=== PATIENT | female | born 1970 | race Caucasian/White ===

== ENCOUNTER 2020-07-12 17:30 | Emergency (ER) | payer BC, OTHER ==
--- OUTSIDE RECORDS SUMMARY | 2020-07-12 17:33 | XMS REPORT | Continuity of Care Document ---
:1970 Author Organization [facility] t Address [address] [place] [address] Care Team Providers Name Role Phone [facility] Attending Clinician Unavailable Barry Santoyo Attending Clinician MARISABEL Admitting Clinician Unavailable Problems Condition Condition Condition Status Onset Resolution Last Treating Co mments Source Name Details Category Date Date Treatment Clinician Date Family Problem Active 2018-03-08 Memor ia history of 04:11:49 l colon Family [place] cancer history of colon cancer Active Problem 03/08/2018 [facility]: [facility] Stomatitis Problem Active 2018-03-08 M emoria 04:11:49 l [place] Stomatitis Active Problem 03/08/2018 eCW: [facility] Back spasm Problem Active 2018-03-08 M emoria 04:11:49 l Back [place] spasm Active Problem 03/08/2018 eCW: [facility] Generalize Problem Active 2018-03-08 M emoria d anxiety 04:11:49 l disorder [place] Generalize d anxiety disorder Active Problem 03/08/2018 eCW: [facility] Migraine Problem Active 2018-03-08 Mem oria without 04:11:49 l aura and Migraine Herm nehemiah without without status aura and migrainosu without s, not status intractabl migrainosu e s, not intractabl e Active Problem 03/08/2018 eCW: [facility] Amnesia Problem Active 2020-06-18 Noé lynne (finding) 01:44:48 l Amnesia [place] (finding) Active Problem 06/18/2020 [facility] Bipolar Problem Active 2020-06-18 Noé lynne disorder 01:44:48 l (disorder) Bipolar Her oconnor disorder (disorder) Active Problem 06/18/2020 [facility] Chronic Problem Active 2020-06-18 Noé lynne constipati 01:44:48 l on Chronic [place] (disorder) constipati on (disorder) Active Problem 06/18/2020 [facility] Lumbar Problem Active 2020-06-18 Memor ia radiculopa 01:44:48 l thy Lumbar [place] (disorder) radiculopa thy (disorder) Active Problem 06/18/2020 [facility] Allergies, Adverse Reactions, Alerts Allergy Allergy Status Severity Reaction(s) Onset Inactive Treating Comm ents Source Name Type Date Date Clinician sulfa sulfa Active Memoria drugs drugs l [facility] Social History Social Habit Start Date Stop Date Quantity Comments Source Social History 2016-12-21 2016-12-21 [facility] H ermann 22:12:53 22:12:53 Alcohol: 2015-05-24 2015-05-24 [facility] Lizzie nn 00:00:00 00:00:00 Medications Ordered Filled Start Stop Current Ordering Indication Dosage Frequency Signature Comments Components Source Medication Medication Date Date Medication? Clinician (SIG) Name Name Xanax Yes .50, PO, Memoria 2-10 Bedtime, 0 l 15:24: Refill(s) [facility] 00 Baclofen Yes PO, TID, 0 Mem oria 2-10 Refill(s) l 15:24: [place] 00 Acetaminoph Yes 1 tab, PO, Memoria en 325 MG / 2-10 Q6H, 0 l Hydrocodone 15:24: Refill(s) H ermann Bitartrate 00 10 MG Oral Tablet [Blevins 10/325] Topamax Yes Mumtaz Mesa 1 tab(s) Memoria 8-09 l 04:19: [facility] 23 Topamax 0 Yes Mumtaz [place] 1 tab(s) Memoria 8-09 l 00:00: [place] 00 Vital Signs Vital Name Observation Time Observation Value Comments Source Systolic (mm Hg) 2020-06-15 15:18:00 Noé rial [place] Diastolic (mm Hg) 2020-06-15 15:18:00 Mem orial [facility] Heart Rate 2020-06-15 15:18:00 [facility] Respitory Rate 2020-06-15 15:18:00 Saadori al [place] Height 2020-06-15 15:18:00 154.94 cm [facility] Weight 2020-06-15 15:18:00 Pari Phipps BMI Calculated 2020-06-15 15:18:00 [facility] Procedures Procedure Date / Time Performed Performing Clinician Diomedes acosta Left wrist Pari Phipps Right foot Pari Phipps Encounters Start End Encounter Admission Attending Care Care Encounter Source Date/Time Date/Time Type Type Clinicians Facility Department ID 2020-06-06 Inpatient SOHAIL LAM PT [facility] [id number] [place] 08:26:00 [facility] 2020-06-15 2020-06-15 Outpatient LIZBET Santoyo [facility] [id number] 09:00:00 23:59:59 Albino Martin Barry 2018-03-07 2018-03-07 Outpatient [facility] [place] [id number] [facility] 14:40:00 14:40:00 [facility] 2017-07-02 2017-07-02 Outpatient [facility] [place] [id number] Memoria 14:00:00 14:00:00 [facility] 2015-12-13 2015-12-13 Outpatient [facility] [place] [id number] Memoria 09:05:00 09:05:00 [facility] 2015-12-12 2015-12-12 Outpatient [facility] [place] [id number] Memoria 11:53:00 11:53:00 [facility] 2015-12-12 2015-12-12 Outpatient [facility] [place] [id number] Memoria 08:49:00 08:49:00 [facility] Results This patient has no known results.
[2020-07-12 19:41] LABS: Absolute Lymphocytes (CBC) 2.8 K/uL (0.7-4.9); Basophils % 1.3 % (0-1.3); Hematocrit 38.8 % (36.0-45.0); Lymphocytes % 42.3 % (15.3-44.8); MPV 9.7 fL (7.6-11.3); RBC Red Blood Cell Count 4.42 M/uL (3.86-4.86)
[2020-07-12 19:51] LABS: Protime INR 0.99
[2020-07-12 19:54] LABS: Barbiturates NEGATIVE (NEGATIVE); Benzodiazepines POSITIVE (NEGATIVE); Cocaine NEGATIVE (NEGATIVE); METHAMPHETAM NEGATIVE (NEGATIVE); Methadone NEGATIVE (NEGATIVE); Opiates NEGATIVE (NEGATIVE); Phencyclidine NEGATIVE (NEGATIVE); THC Cannibis NEGATIVE (NEGATIVE)
[2020-07-12 20:04] LABS: Urine Blood NEGATIVE (NEG); Urine Glucose NEGATIVE (NEG); Urine Protein TRACE (NEG); Urine Specific Gravity >1.030 (1.005-1.030)
[2020-07-12 20:18] LABS: BUN Blood Urea Nitrogen 12 mg/dL (7-18); Bicarbonate 26 mmol/L (21-32); Glucose Level 104 mg/dL (74-106); Potassium 4.9 mmol/L (3.5-5.1); Sodium Level 143 mmol/L (136-145)
[2020-07-12 20:19] LABS: ALT/SGPT 28 U/L (12-78); AST/SGOT 19 U/L (15-37); Albumin 3.3 g/dL (3.4-5.0); Alkaline Phosphatase 91 U/L (45-117); Bilirubin Direct < 0.1 mg/dL (0-0.2); Bilirubin Total 0.1 mg/dL (0.2-1.0); Protein, Total 6.7 g/dL (6.4-8.2)
--- NOTE | 2020-07-12 21:30 | EDPHYS ---
Physician Documentation [facility] Name: Shannan Montes Age: 49 yrs Sex: Female : 1970 Arrival Date: 07/12/2020 Time: 17:35 Bed 8 Private MD: Nely Nye ED Physician Sergio Sauceda HPI: 07/12 19:23 This 49 yrs old Female presents to ER via Ambulatory with complaints of pm1 Depression. 19:23 The patient presents to the emergency department with suicide ideation, and the patient pm1 has a plan, to overdose with medications. 19:23 Onset: The symptoms/episode began/occurred 1 week(s) ago. Past psychiatric history: pm1 Prior diagnosis: bipolar disorder, PTSD. 19:23 Associated signs and symptoms: The patient has no apparent associated signs or pm1 symptoms, Pertinent negatives: homicidal ideation, substance abuse. Severity of symptoms: in the emergency department the symptoms are worse. The patient has experienced similar episodes in the past, multiple times, Patient has had multiple admissions to the hospital for suicidal ideation and overdose attempts in the past. 19:23 Last inpatient hospitalization was 2006 for suicide attempt by overdose. Patient has pm1 not slept in 4 days and she usually has insomnia prior to suicidal ideation and attempt. Patient recently had her medications changed from Prozac and Topamax to Latuda and Pristiq one week ago. 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: 23:07 lmp unknwom mg2 Historical: - Allergies: 17:44 Sulfa (Sulfonamide Antibiotics); ll1 - Home Meds: 07/13 00:00 alprazolam 0.5 mg Oral tab 1 tab twice a day [Active]; desvenlafaxine 50 mg oral Tb24 1 rr5 tab once daily [Active]; progesterone micronized 200 mg oral cap 1 cap once a day evening [Active]; ibuprofen 800 mg Oral tab 1 tab once a day [Active]; bie 70/30 OD am [Active]; Latuda 40 mg oral tab 1 tab once daily [Active]; - PMHx: 07/12 17:44 Bipolar disorder; PTSD; bulging discs-back pain with pinched nerves.; ll1 - PSHx: 17:44 wrist/foot sx; Tubal ligation; ; ll1 - Immunization history:: Flu vaccine is not up to date. - Social history:: Smoking status: Patient denies any tobacco usage or history of. ROS: 19:23 Constitutional: Negative for fever, chills, and weight loss, Cardiovascular: Negative pm1 for chest pain, palpitations, and edema, Respiratory: Negative for shortness of breath, cough, wheezing, and pleuritic chest pain, Abdomen/GI: Negative for abdominal pain, nausea, vomiting, diarrhea, and constipation, Back: Negative for injury and pain, Neuro: Negative for headache, weakness, numbness, tingling, and seizure. 19:23 Psych: Positive for anxiety, insomnia, suicidal ideation, Negative for drug dependence, alcohol dependence, auditory hallucinations, visual hallucinations, homicidal ideation. Exam: 19:23 Constitutional: This is a well developed, well nourished patient who is awake, alert, pm1 and in no acute distress. Head/Face: Normocephalic, atraumatic. 19:23 Skin: Warm, dry with normal turgor. Normal color with no rashes, no lesions, and no evidence of cellulitis. MS/ Extremity: Pulses equal, no cyanosis. Neurovascular intact. Full, normal range of motion. 19:23 Cardiovascular: Exam negative for acute changes, Rate: normal, Rhythm: regular, Pulses: no pulse deficits are appreciated. 19:23 Respiratory: Exam negative for acute changes, respiratory distress, shortness of breath. 19:23 Neuro: Exam negative for acute changes, Orientation: is normal, Mentation: is normal, Motor: is normal, moves all fours, Gait: is steady, at a normal pace, without difficulty. 19:23 Psych: Behavior/mood is pleasant, cooperative, Affect is calm, Oriented to person, place, time, Patient having thoughts of suicide. Plan for suicide is overdose on medications Delusions/hallucinations are not present. Vital Signs: 17:40 BP 117 / 77; Pulse 66; Resp 16; Temp 98.0; Pulse Ox 99% ; Weight 60.78 kg; Height 5 ft. ll1 1 in. (154.94 cm); Pain 0/10; 19:52 BP 125 / 70; Pulse 69; Resp 16; Pulse Ox 98% ; rr5 03 02:00 BP 125 / 71; Pulse 70; Resp 18; Temp 98; Pulse Ox 100% on R/A; mg2 07/12 17:40 Body Mass Index 25.32 (60.78 kg, 154.94 cm) ll1 MDM: 07/12 18:48 Patient medically screened. pm1 21:28 Data reviewed: vital signs. Data interpreted: Pulse oximetry: on room air is 98 %. pm1 Interpretation: normal. 21:28 Counseling: I had a detailed discussion with the patient and/or guardian regarding: the pm1 historical points, exam findings, and any diagnostic results supporting the discharge/admit diagnosis, lab results, the need to transfer to another facility, [facility] does not immediately have the required specialist. 23:28 ED course: I discussed the patient with Dr. Vanegas whom accepted transfer. [facility] 07/12 18:58 Order name: Acetaminophen 1 07/12 18:58 Order name: Basic Metabolic Panel 1 07/12 18:58 Order name: CBC with Diff 1 07/12 18:58 Order name: ETOH Level 1 07/12 18:58 Order name: Hepatic Function; Complete Time: 20:51 pm1 07/12 18:58 Order name: PT-INR; Complete Time: 20:05 pm1 07/12 18:58 Order name: Ptt, Activated; Complete Time: 20:05 pm1 07/12 18:58 Order name: Salicylate; Complete Time: 20:05 pm1 07/12 18:58 Order name: Urine Drug Screen; Complete Time: 20:05 pm1 07/12 18:58 Order name: Acetaminophen Level; Complete Time: 20:51 EDMS 07/12 18:58 Order name: Basic Metabolic Panel; Complete Time: 20:51 EDMS 07/12 18:59 Order name: CBC with Automated Diff; Complete Time: 20:05 EDMS 07/12 18:59 Order name: Alcohol Serum/Plasma; Complete Time: 20:05 EDMS 07/12 19:34 Order name: Urine Dipstick--Ancillary (enter results) [facility] 07/12 18:58 Order name: EKG; Complete Time: 18:59 pm1 07/12 18:58 Order name: EKG - Nurse/Tech; Complete Time: 19:36 pm1 07/12 18:58 Order name: IV Saline Lock; Complete Time: 19:37 pm1 07/12 18:58 Order name: Labs collected and sent; Complete Time: 19:37 pm1 07/12 18:58 Order name: Urine Dipstick-Ancillary (obtain specimen); Complete Time: 19:37 pm1 07/12 19:40 Order name: COVID-19 : Document "Date of Symptom Onset" if Symptomatic. mw2 07/12 19:53 Order name: CORONAVIRUS EDNM 07/12 20:04 Order name: Urine Dipstick-Ancillary; Complete Time: 20:05 EDMS 07/12 20:43 Order name: SARS-COV-2 RT PCR; Complete Time: 20:51 EDMS Administered Medications: No medications were administered Disposition: 07/13 07:01 Co-signature as Attending Physician, Sergio Sauceda MD. rn Disposition: 07/12/20 21:29 Transfer ordered to Psych Facility. Diagnosis is Suicidal ideations. - Reason for transfer: Higher level of care. - Accepting physician is . - Condition is Stable. - Problem is new. - Symptoms are unchanged. Signatures: Dispatcher [employer] [facility] Casey Thao PA PA Sergio Hinojosa MD MD rn Mario Jacobo, [facility] MECHANICAL ASSEMBLY TECHNICIAN pm1 Agusto Steele, RN RN mg2 Cecilio Hector RN RN rr5 Bri Ybarra RN RN ll1 Corrections: (The following items were deleted from the chart) 07/12 19:27 18:59 Urine Test ordered. pm1 mw2 07/13 02:42 07/12 21:29 07/12/2020 21:29 Transfer ordered to Psych Facility. Diagnosis is Suicidal mg2 ideations. Reason for transfer: Higher level of care. Accepting physician is . Condition is Stable. Problem is new. Symptoms are unchanged. pm1
--- NOTE | 2020-07-12 21:30 | ER ---
Nurse's Notes [facility] Name: Shannan Montes Age: 49 yrs Sex: Female : 1970 Arrival Date: 07/12/2020 Time: 17:35 Bed 8 Private MD: Nely Nye Diagnosis: Suicidal ideations Presentation: 07/12 17:40 Chief complaint: Patient states: SI for 1 week worse than usual. Recent change off ll1 prozac and topamax, on latuda and prestiq now. States she was going to take a lot of pills to kill herself. Her psychiatrist Dr. Yue Spencer sent her in for eval. Coronavirus screen: Client denies travel out of the [place] in the last 14 days. At this time, the client does not indicate any symptoms associated with coronavirus-19. Ebola Screen: Patient denies travel to an Ebola-affected area in the 21 days before illness onset. Initial Sepsis Screen: Does the patient meet any 2 criteria? No. Patient's initial sepsis screen is negative. Does the patient have a suspected source of infection? No. Patient's initial sepsis screen is negative. Risk Assessment: Do you want to hurt yourself or someone else? Patient reports no desire to harm self or others. Onset of symptoms was July 05, 2020. 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: 23:07 lmp unknwom mg2 Historical: - Allergies: 17:44 Sulfa (Sulfonamide Antibiotics); ll1 - Home Meds: 07/13 00:00 alprazolam 0.5 mg Oral tab 1 tab twice a day [Active]; desvenlafaxine 50 mg oral Tb24 1 rr5 tab once daily [Active]; progesterone micronized 200 mg oral cap 1 cap once a day evening [Active]; ibuprofen 800 mg Oral tab 1 tab once a day [Active]; bie 70/30 OD am [Active]; Latuda 40 mg oral tab 1 tab once daily [Active]; - PMHx: 07/12 17:44 Bipolar disorder; PTSD; bulging discs-back pain with pinched nerves.; ll1 - PSHx: 17:44 wrist/foot sx; Tubal ligation; ; ll1 - Immunization history:: Flu vaccine is not up to date. - Social history:: Smoking status: Patient denies any tobacco usage or history of. Screenin:38 Abuse screen: Denies threats or abuse. Denies injuries from another. Nutritional rr5 screening: No deficits noted. Tuberculosis screening: No symptoms or risk factors identified. Fall Risk IV access (20 points). Total Olvera Fall Scale indicates No Risk (0-24 pts). Assessment: 19:20 General: Appears in no apparent distress. comfortable, Behavior is calm, cooperative, rr5 Reports suicidal thoughts. 19:20 Pain: Denies pain. Neuro: Level of Consciousness is awake, alert, obeys commands, rr5 Oriented to person, place, time. Cardiovascular: Capillary refill < 3 seconds Patient's skin is warm and dry. Respiratory: Airway is patent Respiratory effort is even, unlabored, Respiratory pattern is regular, symmetrical. GI: No signs and/or symptoms were reported involving the gastrointestinal system. : No signs and/or symptoms were reported regarding the genitourinary system. EENT: No signs and/or symptoms were reported regarding the EENT system. Derm: Skin is intact, is healthy with good turgor, Skin temperature is warm. Musculoskeletal: Capillary refill < 3 seconds. 23:10 Reassessment: report given to sahil from [facility] [id number]. rr5 23:12 Reassessment: Patient appears in no apparent distress at this time. Patient and/or mg2 family updated on plan of care and expected duration. Pain level reassessed. report given to CHARLOTTE Diaz of [facility]. 07/13 00:45 Reassessment: patient lying on bed, explained about the waiting time for transfer. mg2 Psych: 01:00 [place] Suicide Severity Screening: "In the past month, have you actually had any mg2 thoughts of killing yourself?" Patient responds "yes." "In your lifetime, have you ever done anything, started to do anything, or prepared to do anything to end your life?" Patient responds "no.". [place] Suicide Severity Screening: In the past month, have you wished you were or wished you could go to sleep and not wake up? Patient responds "yes.". Subjective: Patient's mood is sad, Delusions are denied, Hallucinations are denied Having thoughts of suicide. Objective: Patient is cooperative, Speech is normal, Affect is appropriate. Interventions: Removed personal items and placed in bag. Patient placed in hospital gown. Searched person for dangerous items. Urine collected and sent for urine drug test. Belonging list filled out. Suicide Risk Assessment: Sad Person Scale: Sex of patient: Female: Score 0 points. Age of patient: Score 0 point if patient falls outside of specified age parameters. Depression: Score 1 point if signs of depression are present. Previous Attempt: Substance Abuse: Score 1 point if patient abuses alcohol or drugs. Rational Thinking: Score 0 point if patient has rational thinking. Social Support: Score 0 if social support is present/available. Organized Plan: Score 1 point if patient had a plan in place. Safety Checks: Personal items have been removed. Door is open. No visitors are present at this time. Pt denies substance abuse. 02:00 Commitment: Patient will be a voluntary commitment. mg2 Vital Signs: 07/12 17:40 BP 117 / 77; Pulse 66; Resp 16; Temp 98.0; Pulse Ox 99% ; Weight 60.78 kg; Height 5 ft. ll1 1 in. (154.94 cm); Pain 0/10; 19:52 BP 125 / 70; Pulse 69; Resp 16; Pulse Ox 98% ; rr5 07/13 02:00 BP 125 / 71; Pulse 70; Resp 18; Temp 98; Pulse Ox 100% on R/A; mg2 07/12 17:40 Body Mass Index 25.32 (60.78 kg, 154.94 cm) ll1 ED Course: 07/12 17:35 Patient arrived in ED. mr 17:35 Nely Nye MD is Private Physician. mr 17:43 Triage completed. ll1 17:44 Arm band placed on Patient placed in an exam room, on a stretcher. ll1 18:48 Mario Jacobo NP is [facility] pm1 18:48 Sergio Sauceda MD is Attending Physician. pm1 19:00 Safety checks: Items removed: Door open/sign placed on door: yes. Family/friend jp3 present: no. Sitter present: Yes. 19:25 Inserted saline lock: 20 gauge in left forearm, using aseptic technique. Blood rr5 collected. 19:30 Urine collected: clean catch specimen, clear. rr5 19:36 Cecilio Hector RN is Primary Nurse. rr5 19:37 No provider procedures requiring assistance completed. EKG done, by ED staff, reviewed rr5 by Mario Jacobo NP. 19:38 Patient has correct armband on for positive identification. Placed in gown. Bed in low rr5 position. 19:52 Valuables inventory done. Locked in safe. See valuables checklist. rr5 19:53 COVID swab sent to lab. [facility] 22:05 faxed patient information to all [facility] facilities. 2 22:10 PHCP role handed off by Mario Jacobo, [facility] 22:10 Casey Thao PA is PHCP. [facility] 23:04 [facility] called to do a nurse to nurse. 2 23:05 [facility] called to do a nurse to nurse. mw2 23:07 intact, bleeding controlled, No redness/swelling at site. Pressure dressing applied, Pt jp3 removed IV from arm. 23:07 IV discontinued. [facility] 23:[address]. Concepcion the psychiatrist from [facility]. 2 23:28 updated the patient on transfer status. [facility] 07/13 00:27 updated the patient on transfer status. Informed her that we are waiting for [address] to call back and give us acceptance. 02:01 administrative approval was given by Santiago Graves/ patient has been accepted to [address]/ Dr. Fox has accepted the patient in tranfer. Administered Medications: No medications were administered Outcome: 07/12 21:29 ER care complete, transfer ordered by MD. pm1 07/13 02:41 Transferred by ground EMS to other acute care facility: [facility]. mg2 Condition: stable Instructed on the need for transfer, Demonstrated understanding of instructions. 02:42 Patient left the ED. mg2 Signatures: Casey Thao PA PA [facility] Michelle Contreras mr Mario Jacobo, [facility] DENTAL DETAIL REPRESENTATIVE pm1 Yovany Smith 2 Agusto Steele, CHARLOTTE RN mg2 Augie Chicas jp3 Cecilio Hector, RN RN rr5 Bri Ybarra RN RN ll1 Corrections: (The following items were deleted from the chart) 00:29 07/12 23:[address] Concepcion the psychiatrist from [facility] mw2 mw2
[2020-07-13 17:29] VITALS: BP 125/71; TEMP 98; O2SAT 100
--- NOTE | 2020-07-14 05:16 | EKG ---
Test Date: 2020-07-12 Test Time: 19:22:13 Glass Cutting Machine Feeder: RR MEASUREMENT RESULTS: Intervals: Rate: 63 NJ: 128 QRSD: 76 QT: 424 QTc: 433 Bonner: P: 75 NJ: 128 QRS: 35 T: 58 INTERPRETIVE STATEMENTS: Normal sinus rhythm Nonspecific ST and T wave abnormality Abnormal ECG Compared to ECG 10/01/2011 19:42:51 ST (T wave) deviation now present Short NJ interval no longer present Electronically Signed On 07-14-20 05:11:50 PUBLIC INFORMATION RELATIONS MANAGER by Homero Tidwell
== END 2020-07-13 02:42 ==
LOC: ER 17:30
DX: R45.851 Suicidal ideations (principal); F31.9 Bipolar disorder, unspecified; Z20.822 Contact with and (suspected) exposure to COVID-19; F43.10 Post-traumatic stress disorder, unspecified
CPT/HCPCS: 93005; 85025; 80048; 36415; 80320; 80329 ×2; 85610; 80076; 80307 ×8; 85730; 81003; 99285; U0003

== ENCOUNTER 2021-02-20 01:45 | Emergency (ER) | payer BC ==
[2021-02-20 03:07] LABS: Absolute Lymphocytes (CBC) 2.5 K/uL (0.7-4.9); Basophils % 1.1 % (0-1.3); Hematocrit 36.3 % (36.0-45.0); Lymphocytes % 28.1 % (15.3-44.8); MPV 8.4 fL (7.6-11.3); RBC Red Blood Cell Count 4.19 M/uL (3.86-4.86)
[2021-02-20 03:09] LABS: Protime INR 1.03
[2021-02-20 03:14] LABS: Barbiturates NEGATIVE (NEGATIVE); Benzodiazepines POSITIVE (NEGATIVE); Cocaine NEGATIVE (NEGATIVE); METHAMPHETAM NEGATIVE (NEGATIVE); Methadone NEGATIVE (NEGATIVE); Opiates NEGATIVE (NEGATIVE); Phencyclidine NEGATIVE (NEGATIVE); THC Cannibis POSITIVE (NEGATIVE)
[2021-02-20 03:14] LABS: Urine Blood Negative (Negative); Urine Glucose Negative (Negative); Urine Protein Negative (Negative); Urine Specific Gravity 1.025 (1.005-1.030)
[2021-02-20] MEDS ORDERED: NA CHLORIDE 0.9% 1,000 ML ONE (03:23)
[2021-02-20 03:42] LABS: ALT/SGPT 42 U/L (12-78); AST/SGOT 35 U/L (15-37); Albumin 3.5 g/dL (3.4-5.0); Alkaline Phosphatase 81 U/L (45-117); BUN Blood Urea Nitrogen 23 mg/dL (7-18); Bicarbonate 22 mmol/L (21-32); Bilirubin Direct < 0.1 mg/dL (0-0.2); Bilirubin Total 0.2 mg/dL (0.2-1.0); Glucose Level 100 mg/dL (74-106); Potassium 4.2 mmol/L (3.5-5.1); Protein, Total 6.9 g/dL (6.4-8.2); Sodium Level 144 mmol/L (136-145)
[2021-02-20] MEDS ORDERED: IBUPROFEN 200 MG TAB PO ONE (04:03)
[2021-02-20] MEDS ORDERED: IBUPROFEN 400 MG TAB ONE (04:03)
--- NOTE | 2021-02-20 04:36 | ER ---
Nurse's Notes [facility] Name: Shannan Montes Age: 50 yrs Sex: Female : 1970 Arrival Date: 02/20/2021 Time: 01:55 Bed 18 Private MD: Diagnosis: Altered mental status Presentation: 02/20 01:56 Chief complaint: EMS states: they were toned out by PD for report of pt who was at work bb and seemed to be falling asleep. Coronavirus screen: At this time, the client does not indicate any symptoms associated with coronavirus-19. Ebola Screen: No symptoms or risks identified at this time. Initial Sepsis Screen: Does the patient meet any 2 criteria? No. Patient's initial sepsis screen is negative. Does the patient have a suspected source of infection? No. Patient's initial sepsis screen is negative. Risk Assessment: Do you want to hurt yourself or someone else? Patient reports no desire to harm self or others. Onset of symptoms was February 20, 2021. 01:56 Method Of Arrival: EMS: [facility] bb 01:56 Acuity: JAYESH 2 bb 01:56 Note pt reports she took some Xanax for her anxiety earlier before going to work and bb she had taken hydrocodone earlier in the day for her degenerative disc disease. Triage Assessment: 01:45 General: Appears in no apparent distress. 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 Pain: Denies pain. Neuro: Level of Consciousness is Sleeping; easily arousable to verbal stimuli; oriented to person; following commands.. Cardiovascular: Heart tones S1 S2 Capillary refill < 3 seconds Rhythm is sinus rhythm. Respiratory: No deficits noted. Airway is patent Breath sounds are clear bilaterally. GI: No deficits noted. Abdomen is round Bowel sounds present X 4 quads. : No signs and/or symptoms were reported regarding the genitourinary system. Derm: Healed wound left elbow; reports burning elbow approx. 3 weeks ago. Musculoskeletal: Reports weakness in right arm x 3 months s/p covid (Moderna) vaccine; states, "I have nerve damage"; moving right arm with no difficulty; reports no numbness; Dr. Black notified \\T\\ aware. 01:45 General: Behavior is cooperative, drowsy, arouses easily.. 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 - Social history:: Smoking status: Patient denies any tobacco usage or history of. Patient/guardian denies using alcohol, street drugs. Screenin:00 Abuse screen: Denies threats or abuse. Nutritional screening: No deficits noted. cc4 Tuberculosis screening: No symptoms or risk factors identified. Fall Risk None identified. Assessment: 01:45 General: See triage note.. cc4 03:00 Reassessment: Patient appears in no apparent distress at this time. Patient is cc4 alert/active/playful, equal unlabored respirations, skin warm/dry/pink. Awake \\T\\ alert; [place] suicide assessment done \\T\\ denies wanting to harm self or others; reports having thoughts of suicide 6 mos ago \\T\\ reports being admitted to psyche facility x 1 week; denies any thoughts of suicide or plans APT. Vital Signs: 01:45 BP 146 / 92; Pulse 99; Resp 18; Temp 97.6(TE); Pulse Ox 96% on R/A; cc4 01:56 BP 144 / 97; Pulse 90; Resp 18 S; Temp 98.2(O); Pulse Ox 99% on R/A; Weight 68.04 kg bb (R); Height 5 ft. 0 in. (152.40 cm) (R); Pain 0/10; 02:00 BP 117 / 90; Pulse 86; Resp 18; Pulse Ox 96% on R/A; cc4 02:30 BP 130 / 96; Pulse 87; Resp 18; Pulse Ox 98% on R/A; cc4 03:00 BP 129 / 81; Pulse 83; Resp 18; Pulse Ox 98% on R/A; cc4 03:30 BP 136 / 82; Pulse 83; Resp 20; Pulse Ox 98% on R/A; cc4 04:00 BP 149 / 108; Pulse 81; Resp 18; Pulse Ox 97.6% on R/A; cc4 04:40 BP 144 / 82; Pulse 95; Resp 20; Temp 97.6; Pulse Ox 100% ; cc4 01:56 Body Mass Index 29.29 (68.04 kg, 152.40 cm) bb ED Course: 01:45 Bed in low position. Call light in reach. Side rails up X2. cc4 01:55 Patient arrived in ED. bp1 01:58 Triage completed. bb 01:59 Arm band placed on Patient placed in an exam room, on a stretcher, on pulse oximetry. bb 02:00 No provider procedures requiring assistance completed. Initial lab(s) drawn, by mi, cc4 sent to lab. Inserted saline lock: 22 gauge in right hand, using aseptic technique. 02:06 Silvestre Black MD is Attending Physician. pkl 02:10 Laura Chirinos, [place] is Primary Nurse. cc4 02:56 Basic Metabolic Panel Sent. cc4 02:56 Acetaminophen Level Sent. cc4 02:56 Acetaminophen Sent. cc4 02:56 Basic Metabolic Panel Sent. cc4 03:19 ETOH Level Sent. cc4 03:19 Hepatic Function Sent. cc4 03:20 Salicylate Sent. cc4 03:21 Thyroid Stimulating Hormone Sent. cc4 03:50 Víctor Head MD is Hospitalizing Provider. pkl 04:40 IV discontinued, intact, bleeding controlled, No redness/swelling at site. Pressure cc4 dressing applied. Administered Medications: 02:55 Drug: NS 0.9% 1000 ml Route: IV; Rate: 1000 ml; Site: right hand; cc4 04:40 Follow up: IV Status: Completed infusion; IV Intake: 1000ml cc4 04:08 Drug: Motrin (ibuprofen) 600 mg Route: PO; cc4 04:40 Follow up: Response: No adverse reaction; Pain is decreased cc4 Intake: 04:40 IV: 1000ml; Total: 1000ml. cc4 Outcome: 01:45 Condition: stable cc4 03:51 Decision to Hospitalize by Provider. pkl 04:35 Discharge ordered by . pkl 04:40 Discharged to home with . cc4 04:40 Discharge instructions given to patient, Instructed on discharge instructions, follow up and referral plans. Demonstrated understanding of instructions, follow-up care, medications. 05:13 Patient left the ED. cc4 Signatures: Silvestre Black MD MD pkCandy Cotton, RN RN Marie Nelson Christie, [place] RN cc4
--- NOTE | 2021-02-20 04:36 | EDPHYS ---
Physician Documentation [facility] Name: Shannan Montes Age: 50 yrs Sex: Female : 1970 Arrival Date: 02/20/2021 Time: 01:55 Bed 18 Private MD: ED Physician Silvestre Black HPI: 02/20 02:16 This 50 yrs old Female presents to ER via EMS with unknown complaint. pkl 02:16 The patient presents with decreased mental status. Onset: The symptoms/episode pkl began/occurred just prior to arrival. Patient admits to taking Xanax 2 mg earlier tonight prior to going to work.. 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 - Social history:: Smoking status: Patient denies any tobacco usage or history of. Patient/guardian denies using alcohol, street drugs. ROS: 02:16 Eyes: Negative for injury, pain, redness, and discharge, ENT: Negative for injury, pkl pain, and discharge, Neck: Negative for injury, pain, and swelling, Cardiovascular: Negative for chest pain, palpitations, and edema, Respiratory: Negative for shortness of breath, cough, wheezing, and pleuritic chest pain, Abdomen/GI: Negative for abdominal pain, nausea, vomiting, diarrhea, and constipation, Back: Negative for injury and pain, : Negative for injury, bleeding, discharge, and swelling, MS/Extremity: Negative for injury and deformity, Skin: Negative for injury, rash, and discoloration. 02:16 Neuro: Positive for altered mental status. Exam: 02:16 Head/Face: Normocephalic, atraumatic. Eyes: Pupils equal round and reactive to light, pkl extra-ocular motions intact. Lids and lashes normal. Conjunctiva and sclera are non-icteric and not injected. Cornea within normal limits. Periorbital areas with no swelling, redness, or edema. ENT: Nares patent. No nasal discharge, no septal abnormalities noted. Tympanic membranes are normal and external auditory canals are clear. Oropharynx with no redness, swelling, or masses, exudates, or evidence of obstruction, uvula midline. Mucous membranes moist. Neck: Trachea midline, no thyromegaly or masses palpated, and no cervical lymphadenopathy. Supple, full range of motion without nuchal rigidity, or vertebral point tenderness. No Meningismus. Chest/axilla: Normal chest wall appearance and motion. Nontender with no deformity. No lesions are appreciated. Cardiovascular: Regular rate and rhythm with a normal S1 and S2. No gallops, murmurs, or rubs. Normal PMI, no JVD. No pulse deficits. Respiratory: Lungs have equal breath sounds bilaterally, clear to auscultation and percussion. No rales, rhonchi or wheezes noted. No increased work of breathing, no retractions or nasal flaring. Abdomen/GI: Soft, non-tender, with normal bowel sounds. No distension or tympany. No guarding or rebound. No evidence of tenderness throughout. Back: No spinal tenderness. No costovertebral tenderness. Full range of motion. Skin: Warm, dry with normal turgor. Normal color with no rashes, no lesions, and no evidence of cellulitis. MS/ Extremity: Pulses equal, no cyanosis. Neurovascular intact. Full, normal range of motion. 02:16 Neuro: Orientation: is normal, Mentation: is normal, Memory: is normal, Cranial nerves: grossly normal, Cerebellar function: normal finger to nose testing, Motor: is normal, Sensation: is normal. Vital Signs: 01:45 BP 146 / 92; Pulse 99; Resp 18; Temp 97.6(TE); Pulse Ox 96% on R/A; cc4 01:56 BP 144 / 97; Pulse 90; Resp 18 S; Temp 98.2(O); Pulse Ox 99% on R/A; Weight 68.04 kg bb (R); Height 5 ft. 0 in. (152.40 cm) (R); Pain 0/10; 02:00 BP 117 / 90; Pulse 86; Resp 18; Pulse Ox 96% on R/A; cc4 02:30 BP 130 / 96; Pulse 87; Resp 18; Pulse Ox 98% on R/A; cc4 03:00 BP 129 / 81; Pulse 83; Resp 18; Pulse Ox 98% on R/A; cc4 03:30 BP 136 / 82; Pulse 83; Resp 20; Pulse Ox 98% on R/A; cc4 04:00 BP 149 / 108; Pulse 81; Resp 18; Pulse Ox 97.6% on R/A; cc4 04:40 BP 144 / 82; Pulse 95; Resp 20; Temp 97.6; Pulse Ox 100% ; cc4 01:56 Body Mass Index 29.29 (68.04 kg, 152.40 cm) bb MDM: 02:06 Patient medically screened. pkl 03:49 Data reviewed: vital signs, nurses notes, lab test result(s), EKG, radiologic studies, pkl CT scan, plain films. 04:32 ED course: Patient feeling better. Advised to follow up with PCP in 1 to 2 days. To pkl return if necessary. Patient understood instructions. 02/20 02:15 Order name: Acetaminophen pkl 02/20 02:15 Order name: Basic Metabolic Panel pkl 02/20 02:15 Order name: CBC with Diff; Complete Time: 04:28 pkl 02/20 02:15 Order name: ETOH Level; Complete Time: 04:28 pkl 02/20 02:15 Order name: Hepatic Function; Complete Time: 04:28 pkl 02/20 02:15 Order name: PT-INR; Complete Time: 04:28 pkl 02/20 02:15 Order name: Ptt, Activated; Complete Time: 04:28 pkl 02/20 02:15 Order name: Salicylate; Complete Time: 04:28 pkl 02/20 02:15 Order name: Urine Drug Screen; Complete Time: 04:28 pkl 02/20 02:16 Order name: Acetaminophen Level; Complete Time: 04:28 EDMS 02/20 02:16 Order name: Basic Metabolic Panel; Complete Time: 04:28 EDMS 02/20 03:01 Order name: Thyroid Stimulating Hormone; Complete Time: 04:28 EDMS 02/20 03:13 Order name: Urine Dipstick-Ancillary; Complete Time: 04:28 EDMS 02/20 02:15 Order name: EKG; Complete Time: 02:17 pkl 02/20 02:15 Order name: EKG - Nurse/Tech; Complete Time: 03:19 pkl 02/20 02:15 Order name: IV Saline Lock; Complete Time: 03:19 pkl 02/20 02:15 Order name: Labs collected and sent; Complete Time: 03:19 pkl 02/20 02:15 Order name: Suicide Screening ([place]); Complete Time: 03:47 pkl 02/20 02:15 Order name: Urine Dipstick-Ancillary (obtain specimen); Complete Time: 03:02 pkl Administered Medications: 02:55 Drug: NS 0.9% 1000 ml Route: IV; Rate: 1000 ml; Site: right hand; cc4 04:40 Follow up: IV Status: Completed infusion; IV Intake: 1000ml cc4 04:08 Drug: Motrin (ibuprofen) 600 mg Route: PO; cc4 04:40 Follow up: Response: No adverse reaction; Pain is decreased cc4 Disposition Summary: 02/20/21 04:35 Discharge Ordered Location: Home(02/20/21 04:35) pkl Problem: new(02/20/21 04:35) pkl Symptoms: have improved(02/20/21 04:35) pkl Condition: Stable(02/20/21 04:35) pkl Diagnosis - Altered mental status pkl Followup: pkl - With: Private Physician - When: 1 - 2 days - Reason: Re-evaluation by your physician Discharge Instructions: - Discharge Summary Sheet pkl Forms: - Work release form pkl - Medication Reconciliation Form pkl - Thank You Letter pkl - Antibiotic Education pkl - Prescription Opioid Use pkl Signatures: 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 EDOH EDMS 03:52 03:51 Inpatient Admission pkl pkl 03:52 03:51 Víctor Head pkl pkl 03:52 03:51 Telemetry/MedSurg (Inpatient) pkl pkl 03:52 03:51 Stable pkl pkl 03:52 03:51 new pkl pkl 03:52 03:51 are unchanged pkl pkl 03:52 03:51 Standard pkl pkl 03:52 03:51 pkl pkl 03:52 03:51 Respiratory failure. COPD exacerbation pkl pkl 03:53 03:49 ED course: Talked to Jordan Butts ( Electronic Publications Specialist ) Admit to Dr. Head. pkl pkl
[2021-02-20 05:41] VITALS: BP 144/82; TEMP 97.6; O2SAT 100
--- NOTE | 2021-02-20 08:57 | EKG ---
Test Date: 2021-02-20 Test Time: 03:12:47 Clinical Academic Allergist: SHERITA MEASUREMENT RESULTS: Intervals: Rate: 83 VT: 122 QRSD: 80 QT: 376 QTc: 441 [place]: P: 41 VT: 122 QRS: 23 T: 26 INTERPRETIVE STATEMENTS: Normal sinus rhythm Cannot rule out Anterior infarct, age undetermined Abnormal ECG Compared to ECG 07/12/2020 19:22:13 Myocardial infarct finding now present ST (T wave) deviation no longer present Electronically Signed On 02-20-21 08:57:12 CDT by Homero Tidwell
== END 2021-02-20 05:13 | disposition home or self-care (01) ==
LOC: ER 01:45
DX: R41.82 Altered mental status, unspecified (principal); F31.9 Bipolar disorder, unspecified; Z88.2 Allergy status to sulfonamides
CPT/HCPCS: 93005; 85025; 80048; 36415; 80320; 80329 ×2; 85610; 80076; 85730; 84443; 81003; 80307; 96360; 99284; J7030

== ENCOUNTER 2022-08-28 07:05 | Inpatient (IN) | payer BC ==
--- OUTSIDE RECORDS SUMMARY | 2022-08-28 07:17 | XMS REPORT | Continuity of Care Document ---
:1970 Author Organization [facility] t Address [address] [place] [address] Care Team Providers Name Role Phone BEBETO ACOSTA Primary Care Physician Unavailable ANJALI PETIT Attending Clinician Unavailable RANDI TRUONG Attending Clinician Unavailable GASPER PICHARDO Attending Clinician Unavailable Gasper Pichardo MD Attending Clinician PHILLIP BAIG Attending Clinician Unavailable Phillip Medeiros Attending Clinician Albino Santoyo Attending Clinician SHEKHAR MCDUFFIE Attending Clinician Unavailable RADIOLOGY Attending Clinician Unavailable Nikolas Linder Attending Clinician Michael Morales Attending Clinician Unavailable LYNDA MILLER Attending Clinician Unavailable JUAN MIGUEL ARNDT Attending Clinician Unavailable ABDULLAHI KIM Attending Clinician Unavailable MELISSA PEDERSON Attending Clinician Unavailable ANJALI PETIT Admitting Clinician Unavailable GASPER PICHARDO Admitting Clinician Unavailable PHILLIP BAIG Admitting Clinician Unavailable Michael Morales Admitting Clinician Unavailable Payers Payer Name Policy Type Policy Number Effective Date Expiration Date S [facility] [place] AND [id number] 2019 00:00:00 OUT [facility] [id number] 2019 00:00:00 SRC AN AETNA [id number] 2017 00:00:00 COMPANY Problems Condition Condition Condition Status Onset Resolution Last Treating Co mments Source Name Details Category Date Date Treatment Clinician Date Burn Burn Disease Active Univers 07-29 ity of 00:00: [place] 00 Medical Branch Family Family Problem Active 2018-03-08 Noé lynne history of history of 04:11:49 l colon colon [place] cancer cancer Active Problem 03/08/2018 eCW: [facility] Stomatitis Stomatiti Problem Active 2018-03-08 Memoria s Active 04:11:49 l Problem Moise 03/08/2018 eCW: [facility] Back spasm Back Problem Active 2018-03-08 M emoria spasm 04:11:49 l Active [place] Problem 03/08/2018 eCW: [facility] Generalize Generaliz Problem Active 2018-03-08 Memoria d anxiety ed anxiety 04:11:49 l disorder disorder Honorio n Active Problem 03/08/2018 eCW: [facility] Migraine Migraine Problem Active 2018-03-08 Memoria without without 04:11:49 l aura and aura and Honorio n without without status status migrainosu migrainosu s, not s, not intractabl intractabl e e Active Problem 03/08/2018 eCW: [facility] Amnesia Amnesia Problem Active 2021-01-13 Me moria (finding) (finding) 22:29:21 l Active [place] Problem 01/13/2021 Medical Group,[facility] her Neuro Bipolar Bipolar Problem Active 2021-01-13 Me moria disorder disorder 22:29:21 l (disorder) (disorder) He rmann Active Problem 01/13/2021 Medical Group,[facility] her Neuro Chronic Chronic Problem Active 2021-01-13 Me moria constipati constipati 22:29:21 l on on [place] (disorder) (disorder) Active Problem 01/13/2021 Medical Group,[facility] her Neuro Lumbar Lumbar Problem Active 2021-01-13 Noé lynne radiculopa radiculopa 22:29:21 l thy thy [place] (disorder) (disorder) Active Problem 01/13/2021 Medical Group,Misc her Neuro Allergies, Adverse Reactions, Alerts Allergy Allergy Status Severity Reaction(s) Onset Inactive Treating Comm ents Source Name Type Date Date Clinician Sulfa Drug Active Unknown - 2018-05 Univers (Sulfona Allergy See comments 0-11 i ty of mide 00:00: [place] Antibiot 00 Medical ics) Branch Sulfa Drug Active Unknown - 2018-05 Univers (Sulfona Allergy See comments 0-11 i ty of mide 00:00: [place] Antibiot 00 Medical ics) Branch SULFA Drug Active Unknown-Cmnt 2018-05 Univ ers (SULFONA Class 0-11 ity of MIDE 00:00: [place] ANTIBIOT 00 Medical ICS) Branch NO KNOWN Drug Active Univers ALLERGIE Class ity of S [facility] sulfa sulfa Active Memoria drugs drugs l [place] Social History Social Habit Start Date Stop Date Quantity Comments Source Exposure to 2021-12-10 2021-12-20 Not sure [facility] SARS-CoV-2 00:00:00 18:20:00 [facility] (event) [place] Alcohol intake 2021-12-20 2021-12-20 Lifetime University of 00:00:00 00:00:00 non-drinker [facility] (finding) [place] Tobacco use and 2020-07-29 2020-07-29 Smokeless tobacco Un iversity of exposure 00:00:00 00:00:00 non-user [facility] Social History 2016-12-21 2016-12-21 Pari padmnii 22:12:53 22:12:53 Alcohol: 2015-05-24 2015-05-24 [facility] Lizzie lutz 00:00:00 00:00:00 [birth year] Universit y of 00:00:00 00:00:00 [facility] Smoking Status Start Date Stop Date Source Never smoked tobacco [facility] Medications Ordered Filled Start Stop Current Ordering Indication Dosage Frequency Signature Comments Components Source Medication Medication Date Date Medication? Clinician (SIG) Name Name aspirin Yes 325mg 325 mg, Univer s tablet 325 12-21 Oral, ity of mg 14:00: DAILY, [place] [id number] First dose Medical on Janny Branch 12/21/21 at 0900, Until Discontinu ed, Routine NaCl 0.9% 1000mL at 999 Uni vers (NS) bolus 8-17 08-18 mL/hr, ity of infusion 23:30: 01:25 1,000 mL, Yohannes as 1,000 mL 00 :00 IV Medical Infusion, Branch ONCE, 1 dose, On Sat12/20/21 at 1830, STAT ARIPiprazol 0 Yes 0 Memori a e 5 mg oral 7-08 Refill(s) l tablet 16:02: ARIPiprazol 0 Yes 0 Memori a e 5 mg oral 7-08 Refill(s) l tablet 16:02: hydrOXYzine 2020-0 Yes [id number] 25mg Take 1 Univers 25 mg 4-26 tablet by ity of tablet 00:00: mouth [place] 00 every 6 Medical (six) Branch hours. hydrOXYzine 0 Yes [id number] 25mg Take 1 Univers 25 mg 4-26 tablet by ity of tablet 00:00: mouth [place] 00 every 6 Medical (six) Branch hours. HYDROcodone 0 Yes [id number] 1{tbl} Take 1 Un kyle -acetaminop 3-26 tablet by ity of hen 5-325 00:00: mouth [place] mg tablet 00 every 6 Medical (six) Branch hours as needed for Pain (scale 7-10). Indication s: acute pain HYDROcodone 2020-0 Yes 4647 1{tbl} Take 1 Un kyle -acetaminop 3-26 tablet by ity of hen 5-325 00:00: mouth [place] mg tablet 00 every 6 Medical (six) Branch hours as needed for Pain (scale 7-10). Indication s: acute pain Xanax 0 Yes .50, PO, Memoria 2-10 Bedtime, 0 l 15:24: Refill(s) Baclofen 0 Yes PO, TID, 0 Mem oria 2-10 Refill(s) l 15:24: Acetaminoph 0 Yes 1 tab, PO, Memoria en 325 MG / 2-10 Q6H, 0 l Hydrocodone 15:24: Refill(s) H ermann Bitartrate 00 10 MG Oral Tablet [[place] 10/325] Xanax 0 Yes .50, PO, Memoria 2-10 Bedtime, 0 l 15:24: Refill(s) [place] 00 Baclofen Yes PO, TID, 0 Mem oria 2-10 Refill(s) l 15:24: Acetaminoph Yes 1 tab, PO, Memoria en 325 MG / 2-10 Q6H, 0 l Hydrocodone 15:24: Refill(s) H ermann Bitartrate 00 10 MG Oral Tablet [[place] 10/325] Topamax Yes Mumtaz Pozzi 1 tab(s) Memoria 8-09 l 04:19: [place] 23 Topamax Yes Mumtaz Pozzi 1 tab(s) Memoria 8-09 l 04:19: [place] 23 Topamax Yes Mumtaz Pozzi 1 tab(s) Memoria 8-09 l 00:00: Topamax Yes Mumtaz Pozzi 1 tab(s) Memoria 8-09 l 00:00: Vital Signs Vital Name Observation Time Observation Value Comments Source Systolic blood 2021-12-21 01:12:00 123 mm[Hg] Univer sity [facility] Diastolic blood 2021-12-21 01:12:00 94 [facility]Hg[facility] 2021-12-21 01:12:00 82 /min [facility] Respiratory rate 2021-12-21 01:12:00 16 /min [facility] Oxygen saturation in 2021-12-21 01:12:00 98 /min [facility] Arterial blood by [facility] Pulse oximetry [place] Body temperature 2021-12-20 23:22:11 36.5 Kiya [facility] Body height 2021-12-20 23:21:[address] [facility] Body weight 2021-12-20 23:21:[address] [facility] BMI 2021-12-20 23:21:00 28.32 kg/m2 [facility] Systolic blood 2021-05-22 22:54:00 176 mm[Hg] Univer sity [facility] Diastolic blood 2021-05-22 22:54:00 87 mm[Hg] [facility] Heart rate 2021-05-22 22:54:00 78 /min [facility] Body temperature 2021-05-22 22:54:00 36.89 Kiya [facility] Respiratory rate 2021-05-22 22:54:00 20 /min [facility] Body height 2021-05-22 22:54:[address] [facility] Body weight 2021-05-22 22:54:00 [facility] 2021-05-22 22:54:00 26.37 kg/m2 [facility] Oxygen saturation in 2021-05-22 22:54:00 97 /min [facility] Arterial blood by [facility] Pulse oximetry Branch Systolic (mm Hg) 2020-11-10 15:49:00 Noé rial [place] Diastolic (mm Hg) 2020-11-10 15:49:00 [facility] orial [place] Heart Rate 2020-11-10 15:49:00 [facility] [place] Respitory Rate 2020-11-10 15:49:00 Memori al [place] Height 2020-11-10 15:49:00 152.4 cm [facility] [place] Weight 2020-11-10 15:49:00 [facility] [place] BMI Calculated 2020-11-10 15:49:00 Memori al [place] Systolic (mm Hg) 2020-06-15 15:18:00 Noé rial [place] Diastolic (mm Hg) 2020-06-15 15:18:00 Mem orial [place] Heart Rate 2020-06-15 15:18:00 [facility] [place] Respitory Rate 2020-06-15 15:18:00 Memori al [place] Height 2020-06-15 15:18:00 154.94 cm [facility] [place] Weight 2020-06-15 15:18:00 [facility] [place] BMI Calculated 2020-06-15 15:18:00 Memori al [place] Procedures Procedure Date / Time Performing Clinician Source Performed CT HEAD WO CONTRAST 2021-12-20 23:56:00 Gasper Pichardo [facility] XR CHEST 1 VW 2021-12-20 23:46:00 Gasper Pichardo [facility] MAGNESIUM 2021-12-20 23:32:00 Gasper Pichardo [facility] TROPONIN I 2021-12-20 23:32:00 Gasper Pichardo [facility] COMP. METABOLIC PANEL 2021-12-20 23:32:00 Gasper Pichardo [facility] ([id number]) Medical [place] CBC WITH DIFF 2021-12-20 23:32:00 Gasper Pichardo [facility] PROTHROMBIN TIME / INR 2021-12-20 23:32:00 Gasper Pichardo [facility] ACTIVATED PARTIAL 2021-12-20 23:32:00 Gasper Pichardo [facility] (ID NOW RAPID 2021-12-20 23:32:00 Gasper Pichardo [facility] TESTING) Medical Branch CONSENT/REFUSAL FOR 2021-12-20 23:13:10 [facility]assigned, [facility] Name [facility] Branch XR CHEST 1 VW 2021-05-22 23:21:41 Phillip Baig [place] [facility] RAPID INFLUENZA A/B 2021-05-22 23:14:[address] [facility] COVID-19 (ID NOW RAPID 2021-05-22 23:14:00 Phillip Baig [facility] TESTING) Medical Branch ASSIGNMENT OF BENEFITS 2021-05-22 22:43:12 Doctor Unassigned, No [facility] Branch CONSENT/REFUSAL FOR 2021-05-22 22:42:54 Doctor Unassigned, No Un [facility] DIAGNOSIS AND TREATMENT Name Medical Branch Left wrist [facility] Right foot [facility] Encounters Start End Encounter Admission Attending Care Care Encounter Source Date/Time Date/Time Type Type Clinicians Facility Department ID 2022-08-23 Outpatient [facility] [id number] [place] 11:05:41 [id number] [facility] 2020-06-06 Inpatient C SOHAIL PETIT PT [facility] [id number] [place] 08:26:00 [facility] 2022-10-09 2022-10-09 Outpatient DIONNE [facility] [id number] [place] 15:00:00 15:00:00 [facility] 2021-12-20 2021-12-20 Emergency X MARINO, [facility] ERT [id number] Univers 18:16:00 20:42:00 [facility] [place] [facility] 2021-12-20 2021-12-20 [facility] [id number] Univers 18:16:00 20:42:00 Gasper Magda [facility] [place] [id number] ity of [place] [id number] [facility] [id number] [address] 2021-05-22 2021-05-22 Emergency X JOVANNI, [facility] ERT [id number] Univers 16:57:00 18:28:00 [facility] 2021-05-22 2021-05-22 Emergency [facility] [id number] Univers 16:57:00 18:28:00 [facility] [id number] it y of [place] [id number] [facility] [id number] [address] ([facility]) 2021-01-11 2021-01-11 Ambulatory nullFlavo MNA [id number] Memoria 18:45:00 18:45:00 [facility]Reg r [facility] 2021-01-11 2021-01-11 Ambulatory nullFlavo MNA [id number] Memoria 18:45:00 18:45:00 Pre-Reg r Neurology 08 l Pietro [place] 2021-01-11 2021-01-11 Outpatient MHJAMES RIBERA [id number] Memoria 13:45:00 13:45:00 08 osbaldo [place] 2021-01-11 2021-01-11 Outpatient LIZBET Santoyo [id number] 13:45:00 13:45:00 Albino Reddy 2020-12-06 2020-12-06 Outpatient R FROY [facility] [id number] Univers 09:45:00 09:45:00 SHEKHAR [facility] 2020-11-30 2020-11-30 Outpatient R RADIOLOGY [facility] [id number] Univers 00:00:00 00:00:00 [facility] [place] [facility] 2020-11-24 2020-11-24 Ambulatory nullFlavo [facility] [id number] Memoria 15:50:00 15:50:00 Pre-Reg r Urology 06 l Associates Lizzie Holguin [place] 2020-11-24 2020-11-24 Ambulatory nullFlavo [facility] [id number] Memoria 15:50:00 15:50:00 [facility] [place] 2020-11-24 2020-11-24 Outpatient [place], [facility] [place] [id number] 10:50:00 10:50:00 Nikolas Hernandez 2020-11-21 2020-11-21 Outpatient WICHO Morales [facility] [id number] [facility] 12:00:00 12:00:[address] [place] [address] 2020-11-15 2020-11-15 Outpatient LYNDA ANDRADE [facility] [id number] [facility] 09:45:00 09:45:00 [facility] 2020-11-10 2020-11-11 Outpatient nullFlavo MNA [id number] Memoria 15:15:00 04:59:59 r Neurology 07 l Pietro Phipps 2020-11-10 2020-11-11 Outpatient nullFlavo MNA [id number] Memoria 15:15:00 04:59:59 r Neurology 07 l Pietro Phipps 2020-11-10 2020-11-10 Outpatient LIZBET SanotyoMISCHER [id number] 10:15:00 23:59:59 Albino Phani Reddy 2020-11-10 2020-11-10 Outpatient MHIE MHIE [id number] Memoria 10:15:00 10:15:00 07 osbaldo Phipps 2020-11-08 2020-11-08 Outpatient MHIE MHIE [id number] Memoria 15:15:00 15:15:00 06 osbaldo Phipps 2020-09-22 2020-09-22 Outpatient LYNDA ANDRADE [facility] [id number] Univers 12:30:00 12:30:00 [facility] 2020-09-22 2020-09-22 Outpatient Tien ARNDT [facility] [id number] Univers 09:00:00 09:00:00 JUAN MIGUEL jeremías [facility] 2020-09-19 2020-09-19 Outpatient R LYNDA MILLER [facility] [id number] Univers 12:30:00 12:30:00 [facility] 2020-09-08 2020-09-08 Outpatient Tien KIM [facility] [id number] Univers 11:20:00 11:20:00 ABDULLAHI jeremías [facility] 2020-08-29 2020-08-29 Outpatient O LYNDA MILLER [facility] [id number] Univers 12:30:00 12:30:00 [facility] 2020-08-29 2020-08-29 Outpatient Tien ARNDT [facility] [id number] Univers 10:00:00 10:00:00 JUAN MIGUEL jeremías [facility] 2020-08-23 2020-08-25 Outside nullFlavo MNA [id number] Memoria 19:59:09 04:59:59 Medical r Neurology 00 l Records Pietro Phipps 2020-08-23 2020-08-25 Outside nullFlavo MNA [id number] Memoria 19:59:09 04:59:59 Medical r Neurology 00 l Records Pietro Phipps 2020-08-23 2020-08-24 Outpatient MHMISCHER MHMISCHER [id number] 14:59:09 23:59:59 00 2020-08-24 2020-08-24 Outpatient O DACIA [facility] [id number] Univers 12:30:00 12:30:00 MELISSA jeremías [facility] 2020-08-11 2020-08-11 Outpatient Tien KIM [facility] [id number] Univers 11:30:00 11:30:00 ABDULLAHI [facility] 2020-08-10 2020-08-10 Outpatient Tien ARNDT [facility] [id number] Univers 15:30:00 15:30:00 JUAN MIGUEL [facility] 2020-08-10 2020-08-10 Outpatient O LYNDA MILLER [facility] [id number] Univers 12:30:00 12:30:00 [facility] 2020-08-05 2020-08-05 Outpatient R FROY [facility] [id number] Univers 12:30:00 12:30:00 SHEKHAR [facility] 2020-07-29 2020-07-29 Outpatient R YRIS [facility] [id number] Univers 15:15:00 15:15:00 JUAN MIGUEL [facility] 2020-07-29 2020-07-29 Outpatient O FROY [facility] [id number] Univers 12:30:00 12:30:00 [facility] 2020-07-28 2020-07-28 Ambulatory nullFlavo MNA [id number] Memoria 14:15:00 14:15:00 Pre-Reg r Neurology 05 l Pietro Phipps 2020-07-28 2020-07-28 Ambulatory nullFlavo MNA [id number] Memoria 14:15:00 14:15:00 Pre-Reg r Neurology 05 l Pietro Phipps 2020-07-28 2020-07-28 Outpatient NICKI SantoyoMISCHER MHMISCHER [id number] 09:15:00 09:15:00 Albino Radha Reddy 2020-07-13 2020-07-13 Outpatient MHIE MHIE [id number] Memoria 11:00:00 11:00:00 05 osbaldo Phipps 2020-06-15 2020-06-16 Outpatient nullFlavo MNA [id number] Memoria 15:00:00 05:59:59 r Neurology 04 l Pietro Phipps 2020-06-15 2020-06-16 Outpatient nullFlavo MNA [id number] Memoria 15:00:00 05:59:59 r Neurology 04 l Pietro Phipps 2020-06-15 2020-06-15 Outpatient Natanael MHMISCHER MHMISCHER [id number] 09:00:00 23:59:59 Albino Martin Reddy 2020-06-15 2020-06-15 Outpatient MHIE MHIE [id number] Memoria 09:00:00 09:00:00 04 osbaldo Phipps 2018-03-07 2018-03-07 Outpatient [place] [id number] Memoria 14:40:00 14:40:00 [facility] [place] [facility] 2017-07-02 2017-07-02 Outpatient [place] [id number] Memoria 14:00:00 14:00:00 [facility] [place] [facility] 2016-12-21 2016-12-21 Outpatient IE [facility] [id number] Memoria 15:00:00 15:00:00 02 l [place] 2016-12-21 2016-12-21 Outpatient MHIE [facility] [id number] Memoria 15:00:00 15:00:00 02 osbaldo [place] 2015-12-13 2015-12-13 Unknown nullFlavo [place] [id number] Memoria 14:05:00 14:05:00 r Family [id number] l Practice [id number] Herm nehemiah [id number] 7020-08-09 2015-12-13 Unknown nullFlavo [place] [id number] [id number] Memoria 14:05:00 14:05:00 r Family [id number] l Practice [id number] Herm nehemiah [id number] 8894-08-09 2015-12-13 Outpatient [place] [id number] Memoria 09:05:00 09:05:00 [facility] 2015-12-12 2015-12-12 *Refill nullFlavo [place] 378e f3c4-a Memoria 16:53:00 16:53:00 from Fax r Family [id number] l [facility] [id number] Herm nehemiah 07b84a 2015-12-12 2015-12-12 *Refill nullFlavo [place] bdb0 fcc3-2 Memoria 16:53:00 16:53:00 from Fax r Family [id number] l [facility] [id number] Herm nehemiah [id number] 2015-12-12 2015-12-12 *Refill nullFlavo [place] 378e f3c4-a Memoria 16:53:00 16:53:00 from Fax r Family [id number] l [facility] [id number] Herm nehemiah 07b84a 2015-12-12 2015-12-12 *Refill nullFlavo [place] bdb0 fcc3-2 Memoria 16:53:00 16:53:00 from Fax r Family [id number] l [facility] [id number] Herm nehemiah [id number] 2015-12-12 2015-12-12 REFILL nullFlavo [place] [id number] [id number] Memoria 13:49:00 13:49:00 r Family [id number] l Practice [id number]-[id number] Herm nehemiah [id number] 2015-12-12 2015-12-12 REFILL nullFlavo [place] 053f d569-c Memoria 13:49:00 13:49:00 r Family [id number] l Practice [id number] Herm nehemiah [id number] 2015-12-12 2015-12-12 REFILL nullFlavo [place] b1a8 680a-7 Memoria 13:49:00 13:49:00 r Family [id number] l Practice [id number] Herm nehemiah [id number] 9184-08-08 2015-12-12 REFILL nullFlavo [place] 7a66 6050-7 Memoria 13:49:00 13:49:00 r Family [id number] l Practice [id number]-10baed Herm nehemiah [id number] 2015-12-12 2015-12-12 REFILL nullFlavo [place] 053f d569-c Memoria 13:49:00 13:49:00 r Family [id number] l Practice [id number] Herm nehemiah [id number] 2015-12-12 2015-12-12 REFILL nullFlavo [place] b1a8 680a-7 Memoria 13:49:00 13:49:00 r Family [id number] l Practice [id number] Herm nehemiah [id number] 2080-08-08 2015-12-12 Outpatient [place] [id number] Memoria 11:53:00 11:53:00 [facility] [place] [facility] 2015-12-12 2015-12-12 Outpatient [place] [id number] Memoria 08:49:00 08:49:00 [facility] [place] [facility] Results Test Description Test Time Test Comments Results Result Comments Source TROPONIN I 2021-12-21 00:10:51 Test Item Value Reference Range Interpretation Comme nts TROPONIN I (test code = 0.002 ng/mL See_Comment [Au tomated message] The 9554504928) system which ge nerated this result tra nsmitted reference range : <=0.034. The reference r jethro was not used to int erpret this result as normal/abnormal . JAYNE (test code = JAYNE) Reference (Normal) Range (defined by the 99th percentile reference limit): <= 0.034 ng/mL Note: Cardiac troponin begins to rise 3-4 hours after the onset of ischemia. Repeat in 4-6 hours if the sample was drawn within 3-4 hours of the onset of the symptom and found normal. Diagnosis of myocardial injury is made with acute changes in cTn concentrations with at least one serial sample above the 99th percentile upper reference limit (URL), taken together with the patient's clinical presentation. Biotin has been reported to cause a negative bias, interpret results relative to patient's use of biotin. Lab Interpretation Normal (test code = 83379-9) [facility] THRM[facility] [id number] 00:02:11 Test Item Value Reference Range Interpretation Comments APTT Patient (test See_Comment [Automat ed code = 3173-2) message] The system which generated this result transmitted reference range : 23 - 38 Seconds . The reference range was not used to interpr et this result as normal/abnormal . JAYNE (test code = JAYNE) The [facility] patient population mean normal value for aPTT is 30 seconds. Lab Interpretation Normal (test code = 77559-0) [facility] Hospital[facility] Time / [id number] 23:59:50 Test Item Value Reference Range Interpretation Comments PROTIME PATIENT (test See_Comment [Auto mated message] code = 5964-2) The system wh ich generated this result transmitted ref erence range: 12.0 - 1 4.7 Seconds. The re ference range was not u sed to interpret this result as normal/abnor mal. INR (test code = 6301-6) Nor mal INR <1.1; Warfarin Therap eutic range 2.0 to 3. 0 or 2.5 to 3.5, dep ending upon the indica tions. Lab Interpretation (test Normal code = 72452-5) [facility]2022-08-17 23:59:29 Test Item Value Reference Range Interpretation Comments MAGNESIUM (test code = 9851535171) 1.8 mg/dL 1.7-2.4 Lab Interpretation (test code = Normal 94082-1) [facility]. METABOLIC PANEL (95714)2021-12-20 23:59:09 Test Item Value Reference Range Interpretation Comments NA (test code = 139 mmol/L 135-145 0718197616) K (test code = 4.0 mmol/L 3.5-5 6203742668) CL (test code = 108 mmol/L 98-108 8903231762) CO2 TOTAL (test code = 19 mmol/L 23-31 L 8129100075) AGAP (test code = 2-16 4424692074) BUN (test code = 19 mg/dL 7-23 1934165128) GLUCOSE (test code = 103 mg/dL 70-110 9090642883) CREATININE (test code = 0.78 mg/dL 0.5-1.04 7364486199) TOTAL BILI (test code = 0.3 mg/dL 0.1-1.7 1757499807) CALCIUM (test code = 9.2 mg/dL 8.6-10.6 3678966223) T PROTEIN (test code = 6.7 g/dL 6.3-8.2 0526828359) ALBUMIN (test code = 4.2 g/dL 3.5-5 9557992713) ALK PHOS (test code = 85 U/L 34-122 3109800745) ALTv (test code = 46 U/L 5-35 H 1742-6) AST(SGOT) (test code = 36 U/L 13-40 8581284530) eGFR (test code = mL/min/1.73m2 0345461209) JAYNE (test code = JAYNE) Association of Glomerular Filtration Rate (GFR) and Staging of Kidney Disease* + --+ --+ ------+| GFR (mL/min/1.73 m2) ?| With Kidney Damage ?| ?Without Kidney Damage+ --------+ --------+ +| ?>90 ?| ?Stage one ?| ? Normal ?+ ---+ ---+ -------+| ?60-89 ?| ?Stage two ?| ? Decreased GFR ? + --+ --+ ------+| ?30-59 ?| ?Stage three ?| ? Stage three ? + --+ --+ ------+| ?15-29 ?| ?Stage four ? | ? Stage four ?+ ---+ ---+ -------+| ?<15 (or dialysis) ? ?| ?Stage five ? | ? Stage five ?+ ---+ ---+ -------+ *Each stage assumes the associated GFR level has been in effect for at least three months. ?Stages 1 to 5, with or without kidney disease, indicate chronic kidney disease. Notes: Determination of stages one and two (with eGFR >59mL/min/1.73 m2) requires estimation of kidney damage for at least three months as defined by structural or functional abnormalities of the kidney, manifested by either:Pathological abnormalities or Markers of kidney damage (including abnormalities in the composition of the blood or urine or abnormalities in imaging tests). Lab Interpretation Abnormal (test code = 68822-1) [facility] WITH [id number] 23:53:08 Test Item Value Reference Range Interpretation Comments WBC (test code = See_Comment [Automated 4340-2) message] The sy stem which generated this result transmitted reference range : 4.30 - 11.10 10*3/?L. The reference range was not used to interpret this result as normal/abnormal . RBC (test code = See_Comment [Automated 268-8) message] The sy stem which generated this result transmitted reference range : 3.93 - 5.25 10*6/?L. The reference range was not used to interpret this result as normal/abnormal . HGB (test code = 12.6 g/dL 11.6-15 718-7) HCT (test code = 38.6 % 35.7-45.2 4544-3) MCV (test code = 84.3 fL 80.6-95.5 787-2) MCH (test code = 27.5 pg 25.9-32.8 785-6) MCHC (test code = 32.6 g/dL 31.6-35.1 786-4) RDW-SD (test code = 41.2 fL 39-49.9 36662-1) RDW-CV (test code = 13.3 % 12-15.5 788-0) PLT (test code = See_Comment H [Automated 777-3) message] The sy stem which generated this result transmitted reference range : 166 - 358 10*3/ ?L. The reference r jethro was not used to interpret this result as normal/abnormal . MPV (test code = 10.1 fL 9.5-12.9 21876-0) NRBC/100 WBC (test See_Comment [Automat ed code = [id number]) message] The system which generated this result transmitted reference range : 0.0 - 10.0 /100 WBCs. The refer ence range was not u sed to interpret th is result as normal/abnormal . NRBC x10^3 (test code See_Comment [Auto mated = [id number]) message] The s ystem which generated this result transmitted reference range : 10*3/?L. The reference range was not used to interpret this result as normal/abnormal . GRAN MAT (NEUT) % 50.5 % (test code = 770-8) IMM GRAN % (test code 0.40 % = 0947670958) LYMPH % (test code = 37.4 % 736-9) MONO % (test code = 10.0 % 5905-5) EOS % (test code = 0.8 % 713-8) BASO % (test code = 0.9 % 706-2) GRAN MAT x10^3(ANC) 3.85 10*3/uL 1.88-7.09 (test code = 9773870480) IMM GRAN x10^3 (test 0.03 10*3/uL 0-0.06 code = 9873386376) LYMPH x10^3 (test code 2.85 10*3/uL 1.32-3.29 = 731-0) MONO x10^3 (test code 0.76 10*3/uL 0.33-0.92 = 742-7) EOS x10^3 (test code = 0.06 10*3/uL 0.03-0.39 711-2) BASO x10^3 (test code 0.07 10*3/uL 0.01-0.07 = 704-7) Lab Interpretation Abnormal (test code = 78420-2) [facility]"
[2022-08-28 07:47] VITALS: BMI 26.6
[2022-08-28] MEDS ORDERED: D50W 25 GM/50 ML SYRINGE IV PRN (12:00)
[2022-08-28] MEDS ORDERED: GLUCAGON 1 MG/VIAL IM PRN (12:00)
[2022-08-28] MEDS ORDERED: cloNIDine HCL 0.1 MG TAB PO PRN (12:10)
[2022-08-28] MEDS ORDERED: BISACODYL 10 MG RECTAL SUPP PR PRN (12:11)
[2022-08-28] MEDS ORDERED: HYDROCODONE/APAP 5/325 MG TAB PO PRN (12:12)
[2022-08-28] MEDS ORDERED: D10W 125 ML IV PRN (12:13)
[2022-08-28] MEDS ORDERED: ACETAMINOPHEN 325 MG TABLET PO PRN (12:14)
[2022-08-28] MEDS ORDERED: ALPRAZOLAM 0.5 MG TABLET PO PRN (12:16)
[2022-08-28] MEDS: BACLOFEN 10 MG TAB PO SCH ×2 (14:08→20:17)
[2022-08-28] MEDS: INSULIN -REGULAR HUMAN 50 UNIT/0.5 ML ML SQ SCH ×2 (16:30→20:18)
[2022-08-28] MEDS ORDERED: HEPARIN 5000 UNIT/ML 1 ML VIAL SQ SCH (17:00)
[2022-08-28 18:43] LABS: Urine Bacteria None Seen /HPF (<20); Urine Mucus 1+ /HPF (None Seen); Urine RBC <5 /HPF (None Seen); Urine WBC Clump Rare /HPF (None Seen)
[2022-08-28 18:44] LABS: Urine Bilirubin Negative (Negative); Urine Blood Negative (Negative); Urine Clarity Clear (Clear); Urine Color Yellow (Yellow); Urine Glucose Negative (Negative); Urine Protein Negative (Negative); Urine Urobilinogen 0.2 (Normal)
--- NOTE | 2022-08-28 19:16 | P.HP ---
Date of Admission: 08/28/2022 [id number] Admission History And Physical Time Of Service: 1 p.m. Chief Complaint: She was able to communicate only a few words. From chart review, she has a stroke as she had significant expressive aphasia. History Of Present Illness: Ms. Montes is a 51-year-old, left-handed patient with hypothyroidism, hypertension, diabetes, anxiety who returned to home around 11 p.m. on 08/17 and went to sleep and in the morning when she awakened, her noted she could not get words out, had difficulty getting her right side moving. However, she did go to work and at work the [employer] were contacted as her workers noted her deficits. She was life flighted to [facility] on the 18 of August where she was diagnosed with stroke. NIH Stroke Scale 10. Her CT scan showed hyperdensities on the left frontoparietal region, suspected to be subacute stroke. CT angiogram showed left internal carotid artery occlusion. CT perfusion showed a large mismatch. An angiogram showed 70% narrowing of left internal carotid artery. She did have a thrombectomy on 08/18. She did complete a full stroke workup and then had physical, occupational, and speech therapy. She does have chronic anemia and hypertension. She has significant paresis with 1/5 strength in the right upper extremity, very decreased endurance, and very difficult communication as she has a significant expressive and receptive aphasia. She, however, was progressed from n.p.o. to soft diet and thin liquids. As a result, she was felt to be an appropriate candidate for aggressive inpatient rehabilitation to manage her medical condition and to work very hard to help her regain her functioning. Therefore she was admitted to the inpatient unit. Past Medical History: As noted above including hypertension, diabetes, thrombectomy which she had on the for her stroke, bipolar disorder, and posttraumatic stress disorder. Allergies: SULFA DRUGS. Family History: Noncontributory. Past Surgical History: Tubal ligation, , and wrist and foot surgery. Social History: No alcohol, tobacco, or IV drug use. Lives with significant other. Medications: [place] 10/325 every 6 hours as needed, alprazolam 0.5 mg at bedtime for insomnia, Abilify 5 mg daily, aspirin 81 mg daily, Lipitor 80 mg at bedtime, baclofen 10 mg 3 times daily, Dulcolax 10 mg per rectum as needed for constipation, Plavix 75 mg daily, melatonin 3 mg at bedtime, Senokot-S 2 tablets twice daily, and Topamax 100 mg twice daily. Laboratory Studies: White blood cell count 8.3, hemoglobin 11.2, hematocrit 34.6, and platelets 293. Sodium 140, potassium 3.9, glucose 94, BUN 11, creatinine 0.54, calcium 9.1, magnesium 2.2, and albumin 2.8. Hemoglobin A1c 5.8. Total cholesterol 136, triglycerides 60, HDL 51, and LDL 73. X-ray/imaging: Brain MRI on 08/19 showed evolving infarct in the left anterior cerebral artery and middle cerebral artery territory. No hemorrhagic conversion. There was chronic encephalomalacia in the left parietal and posterior frontal region and slow flow or occlusion in the left internal carotid artery consistent with post angiographic result on 08/18/2022. Also on the chest imaging, there was mild pulmonary interstitial thickening that may reflect neurogenic edema. Review of Systems: Ms. Montes has marked expressive aphasia and is not able to give a meaningful review of systems. She may answer with 1 word repetitively despite multiple different types of questions. She, however, after repeated instructions was able to count 1, 2 and 3 and eventually show a thumbs-up sign. She could not show an okay sign or a victory sign. She eventually moved her left leg after repeated mimicking and encouragement. Physical Examination: Vital Signs: Blood pressure 131/78, pulse 68, respiratory rate 17, temp 97.7, and oxygen saturation 98%. General: Ms. Montes is resting comfortably in bed with the speech pathologist at the bedside. HEENT: She appears normocephalic, atraumatic. Sclerae anicteric. Oropharynx is moist. Neck: Supple. Chest: Clear. Heart: Regular. Extremities: No significant edema or cyanosis. Neurological: She has a decrease of the right nasolabial fold, decreased excursion, unable to assess sensation and cannot have a meaningful communication. In the right upper extremity, 1/5 strength proximally and distally. The right lower extremity unable to be fully assessed, but appears to also be 1 or 2/5. In the left lower extremity, she did lift that off the bed and had no difficulty doing that. She moved the left arm well. Unable to assess sensation and coordination and her gait. The patient was tired as the therapist came by. She did, however, ambulate 48 feet, 45 feet, and 30 feet with moderate assistance using a eric walker. She did multiple stand and pivot transfers with moderate assistance with a eric walker. Rlmdhw-by-zgd transfers done with moderate assistance. Crz-vd-drwqo transfers done with minimum assistance. She was evaluated by Speech Therapy with findings of severe verbal expression difficulties with moderately severe audible comprehension problems, severe writ ing deficits, and severe reading deficits. It was noted she would benefit from aggressive speech therapy in all modalities. Rehabilitation Medical Assessment And Plan: Ms. Montes is admitted with a rehabilitation impairment category of 01 stroke. Her impairment group code is 01.2 right hemibody involvement with left brain stroke. Her etiologic diagnosis is acute ischemic left internal carotid artery stroke. Active comorbids are acute encephalopathy, expressive and receptive aphasia, bipolar disorder, decreased mobility, dysphagia, hypertension, dyslipidemia, hyperglycemia, hypothyroidism, right hemineglect, right-sided weakness, chronic constipation, prediabetes, cerebral edema, lumbar radiculopathy, and dysphagia. Plan: 1. She will have physical, occupational, and speech therapy 3.5 hours, 5 of 7 days. 2. Her multiple comorbid conditions, which are listed above will be managed by continuing her medications, which were also listed above. She will have the Abilify 5 mg daily, aspirin as noted, Lipitor, baclofen, Plavix, melatonin, Synthroid, and Lipitor. Impact Of Comorbidis: She does have the massive stroke, which has affected her significantly, making it very difficult for her to express herself and to comprehend speech. She does have the comorbids that are listed above. However, she is left handed, which in her case is very helpful as she can use the left hand to write and do fine motor activities. The right hand is functionally incapable of helping at this time. Rehab Specific Plan: 1. As noted she will have 3.5 hours of therapy, 5 of 7 days for physical, occup ational, and speech therapy to work on her cognition, her communication, her swallowing in addition to regaining functional use of the right upper and lower extremities to perform upper and lower body dressing and toileting and transferring as well as beginning to ambulate household distances of at least 50 feet. 2. She will have care home to address all of her medical needs, continue all medications, assess her blood pressures and oxygenation status and blood work. The patient has a good understanding of the benefits of multidisciplinary inpatient rehabilitation including physical, occupational, and speech therapy. She will have, if need be services from the Respiratory Service, Nutrition Service, Psychiatric Service, and diabetic teaching nurse. Given her complex medical condition and her significant stroke with aphasia and right-sided weakness, she cannot be safely provided rehabilitation at a lower level of care such as a care home facility. Barriers To Discharge: She does have a marked aphasia, making it difficult to comprehend and express herself. She also has bipolar disorder with a tendency for impulsivity and may make it difficult for her to follow some instructions appropriately. Expected Length Of Stay: Around 15 days. Disposition: Home. Prognosis: Fair. Rehabilitation Goals: 1. To be able to comprehend and express herself with modified independence. 2. Perform upper and lower body dressing with minimum assistance. 3. Transfer with minimum assistance. 4. Ambulate household distances with minimum assistance. 5. Toileting with minimum assistance. I acknowledge I have performed a full physical examination on Ms. Montes no later than 24 hours after her admission to the inpatient rehabilitation unit and determined that she is able to tolerate the above course of treatment at the intensive level as stated. A detailed individualized plan of care for her will be completed by hospital day 4 based on the preadmission screen, admission history and physical, and therapy evaluations.
[2022-08-28] MEDS: TOPIRAMATE 100 MG TAB PO SCH (20:17)
[2022-08-28] MEDS: ATORVASTATIN 80 MG TAB PO SCH (20:17)
[2022-08-28] MEDS: DOCUSATE NA 100 MG CAP PO SCH (20:18)
[2022-08-28] MEDS: MELATONIN 3 MG TABLET PO PRN (20:18)
[2022-08-28] MEDS: APIXABAN 2.5 MG TABLET PO SCH (20:18)
[2022-08-29 04:27] LABS: Absolute Lymphocytes (CBC) 2.9 K/uL (0.7-4.9); Hematocrit 36.1 % (36.0-45.0); Lymphocytes % 32.4 % (15.3-44.8); MCV 83.6 fL (80-100); MPV 9.2 fL (7.6-11.3); RBC Red Blood Cell Count 4.32 M/uL (3.86-4.86)
[2022-08-29 05:04] LABS: Albumin 3.2 g/dL (3.4-5.0); Magnesium 2.4 mg/dL (1.6-2.4); Potassium 3.8 mEq/L (3.5-5.1); Prealbumin 15.6 mg/dL (20-40)
[2022-08-29] MEDS: LEVOTHYROXINE SOD 0.05 MG TABLET PO SCH (06:27)
[2022-08-29] MEDS: TOPIRAMATE 100 MG TAB PO SCH ×2 (07:23→21:47)
[2022-08-29] MEDS: POLYETHYL GLY 3350 17 GM/DOSE PO SCH (07:23)
[2022-08-29] MEDS: FLUOXETINE 20 MG CAP PO SCH (07:24)
[2022-08-29] MEDS: DOCUSATE NA 100 MG CAP PO SCH ×2 (07:24→21:48)
[2022-08-29] MEDS: ARIPiprazole 5 MG TAB PO SCH (07:24)
[2022-08-29] MEDS: BACLOFEN 10 MG TAB PO SCH ×3 (07:25→21:47)
[2022-08-29] MEDS: INSULIN -REGULAR HUMAN 50 UNIT/0.5 ML ML SQ SCH ×4 (07:26→21:00)
[2022-08-29] MEDS: APIXABAN 2.5 MG TABLET PO SCH ×2 (07:27→21:47)
[2022-08-29] MEDS: ASPIRIN 81 MG CHEWABLE TABLET PO SCH (07:55)
[2022-08-29] MEDS ORDERED: ASPIRIN 81 MG CHEWABLE TABLET PO SCH (08:00)
[2022-08-29] MEDS ORDERED: CLOPIDOGREL 75 MG TABLET PO SCH (08:00)
[2022-08-29] MEDS: ATORVASTATIN 80 MG TAB PO SCH (21:47)
--- NOTE | 2022-08-30 00:40 | PN ---
Date of Progress Note: 08/29/2022 Time Of Service: 1:00 p.m. Subjective: Ms. Montes is in the room with speech pathology working with her. She is able to show a thumbs-up sign when asked to, but still has significant expressive aphasia. She has dense right up per extremity paresis, which is unchanged. She cannot otherwise effectively communicate verbally wit hout being asked questions. Review of Systems: She does not appear to have any fevers or chills. No signs of any myalgias. No significant arthralg ias. No rash and again dense weakness in the right upper extremity where there is no movement noted and there is movement in the right lower extremity where she can move against gravity. Physical Examination: Vital Signs: Blood pressure 112/68, pulse 62, respiratory rate 15, temperature 96.8, oxygen saturati on 98%. General: Ms. Montes is resting in a chair beside the bed. HEENT: She appears normocephalic, atraumatic. NEURO: In terms of cranial nerves, she has a decrease of the right nasolabial fold with some moderat e excursion with smiling. The right upper extremity has 0 strength proximally and distally. Right l ower extremity, 3/5. Left upper and lower extremity, 5/5. Appears to be less sensory responses in t he right upper and lower than the left. She has no ability to do any coordination with right upper e xtremity because of significant weakness. Laboratory Studies: White blood cell count 8.8, hemoglobin 11.8, hematocrit 36.1, platelets 378. Ch emistries: Sodium 138, potassium 3.8, chloride 113, carbon dioxide 22, BUN 22, creatinine 0.67, gluc ose ranged from 106 to 118. Prealbumin 15.6, albumin 3.2. Urinalysis is normal. X-ray/imaging: None. Medications: Tylenol 650 every 4 hours as needed, [place] 5/325 every 6 hours as needed, Xanax 0.5 mg at bedtime as needed, Eliquis 2.5 mg twice daily, Abilify 5 mg daily, aspirin 81 mg daily, Lipitor 80 mg at bedtime, baclofen 10 mg 3 times daily, Dulcolax 10 mg per rectum for constipation as needed, c lonidine 0.1 mg for systolic blood pressure greater than 170; Colace 100 mg twice daily, Prozac 20 mg daily, Synthroid 0.05 mg daily, melatonin 3 mg at bedtime, Senokot S 2 tablets at bedtime, topiramat e 100 mg twice daily. Current Functional Status: Currently, she ambulated 200 feet, another 150 feet and 100 feet and 75 f eet with minimal assistance to contact guard assistance using a eric walker. She attempted to ambula te without assistive device, but was unsafe to do so because of the right footdrop. She would like t o require an AFO. Minimum assistance needed to do stand and pivot transfers. With speech pathology, she demonstrated ability to match written words to a picture with 100% for field of 2 and 70% for fi eld of 3. She did maximum tactile, verbal, and visual cues to copy a single letters with 92% accurac y. Progress Towards Rehabilitation Goals: Ms. Montes is making fair progress so far with her speech pa thology goals of becoming independent in terms of her ability to communicate and comprehend and expre ss herself as well to eat independently without restriction. She is making much better progress ambu lating, but likely will need a right AFO. Assessment: Ms. Montes is a 51-year-old patient admitted to the rehabilitation unit with a left hem ispheric stroke producing right upper extremity weakness, which is very significant to no movement th ere. She has expressive and receptive aphasia in addition to the right lower extremity weakness. Sh e has bipolar disorder, hypertension, dyslipidemia, hypothyroidism, right eric-neglect, lumbar radicu lopathy. Plan: 1.Physical, occupational, and speech therapy 3 hours a day, 5/7 days. 2.She will continue Synthroid 0.5 mg daily for hypothyroidism, melatonin 3 mg at night for insomnia, Senokot S 2 tablets at bedtime along with Dulcolax as needed and Colace for constipation, clonidine 0.1 mg as needed for systolic blood pressure greater than 170, baclofen for muscle spasms 10 mg 3 bryant es daily, Lipitor 80 mg at bedtime for dyslipidemia, aspirin 81 mg daily, and Eliquis 2.5 mg daily fo r stroke and DVT risk reduction. Continue with Abilify 5 mg daily for her bipolar disorder. Continu e [place] 5/325 for pain. Comorbidities That Continue To Impact Rehabilitation Process: At this point, her comorbid conditions are well managed and do not negatively impact her rehabilitation process. However, she does have de nse weakness of the right upper extremity. She has a significant aphasia, which will likely increase the length of time required for communication, could put her at risk of falls if she is not careful and the right footdrop also could put her at risk of falls as she has easy trip hazard. AFO may be n eeded. POLY/KHANH Voice ID: [id number] Report ID: [id number]
[2022-08-30] MEDS: LEVOTHYROXINE SOD 0.05 MG TABLET PO SCH (06:24)
[2022-08-30] MEDS: INSULIN -REGULAR HUMAN 50 UNIT/0.5 ML ML SQ SCH ×4 (07:09→19:57)
[2022-08-30] MEDS: POLYETHYL GLY 3350 17 GM/DOSE PO SCH ×2 (08:00→09:29)
[2022-08-30] MEDS: APIXABAN 2.5 MG TABLET PO SCH ×2 (09:00→19:31)
[2022-08-30] MEDS: ASPIRIN 81 MG CHEWABLE TABLET PO SCH (09:30)
[2022-08-30] MEDS: ARIPiprazole 5 MG TAB PO SCH (09:30)
[2022-08-30] MEDS: FLUOXETINE 20 MG CAP PO SCH (09:30)
[2022-08-30] MEDS: BACLOFEN 10 MG TAB PO SCH (09:30)
[2022-08-30] MEDS: DOCUSATE NA 100 MG CAP PO SCH ×2 (09:30→19:31)
[2022-08-30] MEDS: TOPIRAMATE 100 MG TAB PO SCH ×2 (09:33→19:31)
[2022-08-30] MEDS ORDERED: BACLOFEN 10 MG TAB PO PRN (12:43)
[2022-08-30] MEDS: ATORVASTATIN 80 MG TAB PO SCH (19:31)
--- NOTE | 2022-08-31 01:18 | PN ---
Date of Progress Note: 08/30/2022 Time Of Service: 1:00 p.m. Subjective: Ms. Montes is resting in bed in between therapy sessions. She is doing much better, sm iling and more appropriate when questions are asked. However, she answers yes to most questions and the questions are to be directed and redirected sometimes to get the proper response. Review of Systems: No fevers, chills. No significant changes such as myalgias, arthralgias, or rash. No other complain ts. Physical Examination: Vital Signs: Blood pressure 108/62, pulse 55, respiratory rate 16, temperature 97.7, oxygen saturati on 98%. General: Ms. Montes is lying in bed. Neuro: She does have dense paresis of her right upper motor and lower extremity and there is facial drooping noted. Decreased sensation on the right compared to left side. Otherwise, no new findings on review of systems and examination. Laboratory Studies: No new blood work since yesterday except blood glucose ranged from 111 to 120. X-ray/imaging: None. Medications: Medications have been reviewed and remained unchanged. Progress Made With Physical And Occupational Therapy: Ms. Montes is able to ambulate 200 feet with contact guard assistance using a hemiwalker. With speech therapy, she was able to answer simple yes/ no questions, auditory word recognition in a field of 2-3 with minimum assistance. She required part ial assistance for toileting hygiene, assistance to clean buttocks after bowel movement. Contact gua rd assistance was required for transfer with a hemiwalker. Progress Towards Rehabilitation Goals: Ms. Montse is beginning to make good progress at this point with her goals, although she is significantly limited by the dense paresis of her right upper extremi ty. Her goals would be to be independent in terms of transfer, mobilization, dressing upper and lowe r body, although that may be difficult and going up and down 10 steps. Assessment: Ms. Montes is a 51-year-old patient in the rehabilitation unit with left hemispheric st roke producing dense right arm paresis and less lower extremity paresis. She has marked transcortica l expressive aphasia and lesser receptive aphasia, right lower extremity weakness, bipolar disorder, hypertension, dyslipidemia, hypothyroidism, lumbar radiculopathy. Plan: 1.Continue with physical, occupational, and speech therapy 3.5 hours 5 of 7 days. 2.Synthroid for hypothyroidism. 3.Melatonin for insomnia. 4.Senokot S for constipation. 5.Dulcolax and Colace for constipation along with Senokot as needed. 6.Baclofen for muscle spasms. 7.Lipitor for dyslipidemia. 8.Aspirin and Eliquis for stroke risk reduction. 9.Abilify for bipolar disorder. 10.[place] as needed for pain. Comorbidities That Continue To Impact Her Rehabilitation Process: At this point, she does have marke d aphasia, some neglect, right-sided weakness, which is the reason for her being in the hospital. Maryana acosta also has significant right footdrop and as mentioned previously, an AFO may be helpful. POLY/KHANH Voice ID: [id number] Report ID: [id number]
[2022-08-31] MEDS: LEVOTHYROXINE SOD 0.05 MG TABLET PO SCH (07:19)
[2022-08-31] MEDS: INSULIN -REGULAR HUMAN 50 UNIT/0.5 ML ML SQ SCH ×4 (07:20→19:57)
[2022-08-31] MEDS: FLUOXETINE 20 MG CAP PO SCH (07:28)
[2022-08-31] MEDS: APIXABAN 2.5 MG TABLET PO SCH ×2 (07:28→19:56)
[2022-08-31] MEDS: ASPIRIN 81 MG CHEWABLE TABLET PO SCH (07:28)
[2022-08-31] MEDS: ARIPiprazole 5 MG TAB PO SCH (07:28)
[2022-08-31] MEDS: DOCUSATE NA 100 MG CAP PO SCH ×2 (07:28→19:56)
[2022-08-31] MEDS: POLYETHYL GLY 3350 17 GM/DOSE PO SCH (07:29)
[2022-08-31] MEDS: TOPIRAMATE 100 MG TAB PO SCH ×2 (07:30→20:00)
[2022-08-31] MEDS ORDERED: POLYETHYL GLY 3350 17 GM/DOSE PO PRN (07:31)
--- NOTE | 2022-08-31 08:27 | P.RH.PN ---
Estimated Length of Stay: 11 Expected Discharge Date: 09/07/22 Discharge Disposition Plan: Home Family Support: Yes [facility] Goal: Mobility, Transfers, Self Care Vital Signs: Last Vital Signs Temp 97.0 F 08/31/22 07:12 Pulse 57 08/31/22 07:12 Resp 18 08/31/22 07:12 BP 118/69 08/31/22 07:12 Pulse Ox 98 08/31/22 07:12 Laboratory: Laboratory Last Values WBC 8.80 thou/uL (4.3-10.9) 08/29/22 04:06 RBC 4.32 M/uL (3.86-4.86) 08/29/22 04:06 Hgb 11.8 g/dL (12.0-15.0) L 08/29/22 04:06 Hct 36.1 % (36.0-45.0) 08/29/22 04:06 MCV 83.6 fL (80-100) 08/29/22 04:06 MCH 27.4 pg (27.0-35.0) 08/29/22 04:06 MCHC 32.8 g/dL (32.0-36.0) 08/29/22 04:06 RDW 15.8 % (12.1-15.2) H 08/29/22 04:06 Plt Count 378 thou/uL (152-406) 08/29/22 04:06 MPV 9.2 fL (7.6-11.3) 08/29/22 04:06 Neutrophils % 52.9 % (41.7-73.7) 08/29/22 04:06 Lymphocytes % 32.4 % (15.3-44.8) 08/29/22 04:06 Monocytes % 12.7 % (3.3-12.3) H 08/29/22 04:06 Eosinophils % 1.3 % (0-4.4) 08/29/22 04:06 Basophils % 0.7 % (0-1.3) 08/29/22 04:06 Absolute Neutrophils 4.7 K/uL (1.8-8.0) 08/29/22 04:06 Absolute Lymphocytes 2.9 K/uL (0.7-4.9) 08/29/22 04:06 Absolute Monocytes 1.1 K/uL (0.1-1.3) 08/29/22 04:06 Absolute Eosinophils 0.1 K/uL (0-0.5) 08/29/22 04:06 Absolute Basophils 0.1 K/uL (0-0.5) 08/29/22 04:06 Sodium 138 mEq/L (136-145) 08/29/22 04:06 Potassium 3.8 mEq/L (3.5-5.1) 08/29/22 04:06 Chloride 113 mEq/L (98-107) H 08/29/22 04:06 Carbon Dioxide 22 mEq/L (21-32) 08/29/22 04:06 Anion Gap 6.8 mEq/L (5.0-15.0) 08/29/22 04:06 BUN 22 mg/dL (7-18) H 08/29/22 04:06 Creatinine 0.67 mg/dL (0.55-1.02) 08/29/22 04:06 Est GFR (CKD-EPI) 105 ml/min (=/>90) 08/29/22 04:06 Glucose 118 mg/dL (74-106) H 08/29/22 04:06 POC Glucose 94 mg/dL (65-120) 08/31/22 06:57 Calcium 9.2 mg/dL (8.5-10.1) 08/29/22 04:06 Magnesium 2.4 mg/dL (1.6-2.4) 08/29/22 04:06 Albumin 3.2 g/dL (3.4-5.0) L 08/29/22 04:06 Prealbumin 15.6 mg/dL (20-40) L 08/29/22 04:06 Urine Color Yellow (Yellow) 08/28/22 18:20 Urine Clarity Clear (Clear) 08/28/22 18:20 Urine pH 6.0 (5.0-7.0) 08/28/22 18:20 Ur Specific [place] 1.020 (1.005-1.030) 08/28/22 18:20 Glucose (UA)(Auto) Negative (Negative) 08/28/22 18:20 Urine Ketones Negative (Negative) 08/28/22 18:20 Urine Blood Negative (Negative) 08/28/22 18:20 Urine Nitrite Negative (Negative) 08/28/22 18:20 Urine Bilirubin Negative (Negative) 08/28/22 18:20 Urine Urobilinogen 0.2 (Normal) 08/28/22 18:20 Ur Leukocyte Esterase Negative Cesar/uL (Negative) 08/28/22 18:20 Urine RBC <5 /HPF (None Seen) 08/28/22 18:20 Urine WBC <5 /HPF (<5) 08/28/22 18:20 Urine WBC Clumps Rare /HPF (None Seen) 08/28/22 18:20 Ur Squamous Epith Cells <5 /HPF (None Seen) 08/28/22 18:20 Urine Bacteria None seen /HPF (<20) 08/28/22 18:20 Hyaline Casts 0-5 /LPF (None Seen) 08/28/22 18:20 Urine Mucus 1+ /HPF (None Seen) 08/28/22 18:20 Urine Culture Reflexed Not needed 08/28/22 18:20 Urine Total Protein Negative (Negative) 08/28/22 18:20 Weight: 136 lb 4.8 oz Wound Present: No Closed Surgical Incision Present: No Negative Pressure Wound Therapy Present: No Physician Update: Labs were reviewed and are stable. Making fair overall progress with therapy. Communicates at 90 % with a board. Walking 200' CGA, transfers CGA assistance with hemiwalker. Flaccid right upper extremity. Moderte pain in the right shoulder with full range of motion. X-ray of right shoulder. Summary: Patient's care plan and senior care goals have been reviewed and revised as necessary. Please see the Rehabilitation Signature page for all necessary signatures.
--- NOTE | 2022-08-31 16:16 | RAD REPORT ---
EXAM DESCRIPTION: RAD - Shoulder Right 2 View - 08/31/2022 3:27 pm CLINICAL HISTORY: Right shoulder pain FINDINGS: No fracture or dislocation is seen. Mild narrowing of the AC joint
[2022-08-31] MEDS: GLUCERNA SHAKE 237 ML CAN PO SCH ×2 (19:57→20:00)
[2022-08-31] MEDS: ATORVASTATIN 80 MG TAB PO SCH (19:57)
[2022-08-31] MEDS: MELATONIN 3 MG TABLET PO PRN (20:45)
[2022-09-01] MEDS: INSULIN -REGULAR HUMAN 50 UNIT/0.5 ML ML SQ SCH ×3 (07:30→20:00)
[2022-09-01] MEDS: LEVOTHYROXINE SOD 0.05 MG TABLET PO SCH (07:49)
[2022-09-01] MEDS: ASPIRIN 81 MG CHEWABLE TABLET PO SCH (08:01)
[2022-09-01] MEDS: FLUOXETINE 20 MG CAP PO SCH (08:01)
[2022-09-01] MEDS: ARIPiprazole 5 MG TAB PO SCH (08:02)
[2022-09-01] MEDS: APIXABAN 2.5 MG TABLET PO SCH ×2 (08:02→20:15)
[2022-09-01] MEDS: DOCUSATE NA 100 MG CAP PO SCH ×2 (08:02→20:15)
[2022-09-01] MEDS: GLUCERNA SHAKE 237 ML CAN PO SCH ×2 (08:04→20:16)
[2022-09-01] MEDS: TOPIRAMATE 100 MG TAB PO SCH ×2 (08:04→20:15)
[2022-09-01] MEDS: MELATONIN 3 MG TABLET PO PRN (20:15)
[2022-09-01] MEDS: ATORVASTATIN 80 MG TAB PO SCH (20:15)
[2022-09-02] MEDS: DOCUSATE NA/SENNA CONC 1 TAB PO PRN (05:06)
[2022-09-02] MEDS: LEVOTHYROXINE SOD 0.05 MG TABLET PO SCH (05:06)
[2022-09-02] MEDS: TOPIRAMATE 100 MG TAB PO SCH ×2 (07:42→20:23)
[2022-09-02] MEDS: ARIPiprazole 5 MG TAB PO SCH (07:42)
[2022-09-02] MEDS: APIXABAN 2.5 MG TABLET PO SCH ×2 (07:43→20:23)
[2022-09-02] MEDS: INSULIN -REGULAR HUMAN 50 UNIT/0.5 ML ML SQ SCH ×2 (07:43→20:00)
[2022-09-02] MEDS: DOCUSATE NA 100 MG CAP PO SCH ×2 (07:43→20:23)
[2022-09-02] MEDS: ASPIRIN 81 MG CHEWABLE TABLET PO SCH (07:43)
[2022-09-02] MEDS: GLUCERNA SHAKE 237 ML CAN PO SCH ×2 (07:43→20:00)
[2022-09-02] MEDS: FLUOXETINE 20 MG CAP PO SCH (07:43)
[2022-09-02] MEDS: MELATONIN 3 MG TABLET PO PRN (20:23)
[2022-09-02] MEDS: ATORVASTATIN 80 MG TAB PO SCH (20:23)
[2022-09-03] MEDS: LEVOTHYROXINE SOD 0.05 MG TABLET PO SCH (06:19)
[2022-09-03] MEDS: ARIPiprazole 5 MG TAB PO SCH (07:28)
[2022-09-03] MEDS: FLUOXETINE 20 MG CAP PO SCH (07:28)
[2022-09-03] MEDS: APIXABAN 2.5 MG TABLET PO SCH ×2 (07:28→19:12)
[2022-09-03] MEDS: DOCUSATE NA 100 MG CAP PO SCH ×2 (07:28→19:13)
[2022-09-03] MEDS: TOPIRAMATE 100 MG TAB PO SCH ×2 (07:28→19:12)
[2022-09-03] MEDS: INSULIN -REGULAR HUMAN 50 UNIT/0.5 ML ML SQ SCH ×2 (07:29→19:14)
[2022-09-03] MEDS: GLUCERNA SHAKE 237 ML CAN PO SCH ×2 (07:29→19:13)
[2022-09-03] MEDS: ASPIRIN 81 MG CHEWABLE TABLET PO SCH (07:29)
--- NOTE | 2022-09-03 16:28 | PN ---
Date of Progress Note: 09/03/2022 Time Of Service: 9 a.m. Subjective: Ms. Montes is sitting in a chair beside her bed. She has a smile on her face. She piyush ears to comprehend better when she has communication. She still has limited responses with yes or no dding and smiling. She did follow instructions to move the right hand with the left and to do range- of-motion exercises. She did not have any other complaints in terms of subjective. Review of Systems: No fevers, chills. No nausea, vomiting. No rash. No myalgias. No other complaints. Physical Examination: Vital Signs: Blood pressure 108/65, pulse 60, respiratory rate 15, temperature 97.8, oxygen saturati on 99%. Weight 133 pounds 1.6 ounces, height 5 feet, BMI 26.0. General: Ms. Montes is again sitting in a chair. She is in no acute distress. HEENT: She appears normocephalic, atraumatic. Sclerae anicteric. Oropharynx appears moist. Neck: Supple. Chest: Clear. Heart: Regular. Extremities: Show no significant edema or cyanosis. Neurological: She does respond appropriately to questions with smiling and nodding; however, she sti ll has significant expressive aphasia and unable to communicate her thoughts well, and she does have a decrease of the right nasolabial fold and there is mild excursion on smiling. She has dense paresi s of the right upper extremity, unable to voluntarily move right upper extremity proximally and dista lly. She has more strength 3+/5 in the right lower extremity, left side is 5/5 proximally and distal ly and sensation decreased in the right upper and lower compared to the left upper and lower extremit y in terms of her coordination intact on the left. Unable to assess on the right upper because of si gnificant weakness. Laboratory Studies: No new laboratory studies since 26the except blood glucose ranged from 106 to 12 0. X-ray/imaging: No new x-ray imaging. Medications: Remain unchanged. She is on, 1.Eliquis 2.5 mg twice daily for DVT prophylaxis. 2.[place] 5/325 as needed for pain. 3.Abilify 5 mg for bipolar disorder. 4.Aspirin 81 mg for stroke risk reduction. 5.Lipitor 80 mg at bedtime for dyslipidemia. 6.Baclofen 10 mg 3 times daily for muscle spasms. 7.Clonidine for very elevated blood pressures over 170 systolic. Colace 100 mg twice daily for cons tipation. 8.Prozac 20 mg daily for depression. 9.Synthroid 0.05 mg for hypothyroidism. 10.Melatonin 3 mg for insomnia. 11.Topiramate 100 mg daily for migraine headaches. Current Functional Status: She ambulated 200 feet with contact guard assistance using a eric walker. She was contact guard assistance for toilet transfer with a eric walker. She ambulated to the sink with a eric walker with contact guard assistance. She did have footdrop in the right lower extremit y. She also required partial assistance for toilet hygiene to clean buttocks after bowel movement. With speech therapy, she worked in answering simple yes/no questions with auditory word recognition i n a field of 2 and 3 and naming common objects. She was able to answer simple yes/no questions. Aud itory word recognition a few of 2 and 3 with minimal assistance. She did exhibit perseveration durin g confrontational naming tasks requiring maximal assistance. Progress Towards Rehabilitation Goals: In terms of her mobilization, she is making great progress ge tting around, however, regained the use of the right upper extremity very slow progress. Her express anton aphasia also is slower progress and is actually more global aphasia and comprehension less affect ed than expression. Assessment: Ms. Montes is a 51-year-old patient in the rehabilitation unit with a left hemispheric stroke producing dense paresis of the right upper more than lower extremity. She has right facial we akness. She has a significant expressive aphasia and to a lesser extent receptive aphasia. She has bipolar disorder, hypertension, dyslipidemia, hypothyroidism, and lumbar radiculopathy. Plan: 1.Continue with physical, occupational, and speech therapy 3.5 hours 5 of 7 days. 2.For hypothyroidism, continue Synthroid. 3.For constipation, continue Senokot. 4.For bipolar disorder, continue Abilify. 5.Continue [place] for pain. 6.Aspirin and Eliquis for stroke risk reduction. 7.Lipitor for dyslipidemia. 8.Baclofen for muscle spasms. Comorbidities That Continue To Impact Her Rehabilitation Process: Her significant expressive aphasia is tough to overcome; however, she is working hard with reading words and having able to mimic actio ns and can communicate. I think better when multiple modes are employed. She does have a right foot drop and an AFO may be needed to help prevent tripping. POLY/KHANH Voice ID: [id number] Report ID: [id number]
[2022-09-03] MEDS: ATORVASTATIN 80 MG TAB PO SCH (19:12)
[2022-09-04] MEDS: LEVOTHYROXINE SOD 0.05 MG TABLET PO SCH (06:43)
[2022-09-04] MEDS: GLUCERNA SHAKE 237 ML CAN PO SCH ×2 (08:00→19:06)
[2022-09-04] MEDS: INSULIN -REGULAR HUMAN 50 UNIT/0.5 ML ML SQ SCH ×2 (08:00→19:49)
[2022-09-04] MEDS: ARIPiprazole 5 MG TAB PO SCH (08:31)
[2022-09-04] MEDS: APIXABAN 2.5 MG TABLET PO SCH ×2 (08:31→19:06)
[2022-09-04] MEDS: FLUOXETINE 20 MG CAP PO SCH (08:31)
[2022-09-04] MEDS: ASPIRIN 81 MG CHEWABLE TABLET PO SCH (08:31)
[2022-09-04] MEDS: DOCUSATE NA 100 MG CAP PO SCH ×2 (08:31→19:06)
[2022-09-04] MEDS: TOPIRAMATE 100 MG TAB PO SCH ×2 (08:47→19:06)
[2022-09-04] MEDS: ATORVASTATIN 80 MG TAB PO SCH (19:06)
[2022-09-04] MEDS: AMINO ACIDS/PROTEIN HYDROLYS 30 ML LIQUID.PKT PO SCH (19:07)
--- NOTE | 2022-09-05 02:47 | PN ---
Date of Progress Note: 09/04/2022 Time Of Service: 1 p.m. Subjective: Ms. Montes is sitting in a chair beside bed. She is smiling and answering yes to many questions, but will actually repeat what she is told. She does nod and smiles more when appears to b e happy. Review of Systems: No fevers or chills. No nausea, vomiting, myalgias, arthralgias, or rash. Physical Examination: Vital Signs: Blood pressure 110/66, pulse 63, respiratory rate 15, temperature 97.2. General: As noted, Ms. Montes is resting in bed. She has a right nasolabial fold droop, but there is fair excursion as she smiles. She has dense paresis to the right lower extremity but no movement noted proximally and distally. She has about 3/5 strength, right lower extremity; 5/5 in the left up per and lower extremity. Laboratory Studies: Blood sugars ranged from 89 to 112. X-ray/imaging: No new x-ray imaging. Medications: Have been reviewed and remained unchanged from yesterday. Current Functional Status: Today she ambulated 250 feet with contact guard assistance using a hemiwa lker on uneven surfaces and slopes. She also participated in gait training of 250 feet and 150 feet with standby assistance using a hemiwalker on level surface. She ascended and descended 15 steps wit h standby assistance using bilateral handrails. Multiple hfv-ny-dohlt done independently with a eric walker. She also was able to ambulate to the gym and back to the toilet with a hemiwalker with conta ct guard assistance. With speech therapy, she did report through facial expression, in answering yes and no questions using communication board. She feels her verbal speech needs to improve and would like speech therapy to be continued during Home Health and after discharge. She worked on reading an d writing tasks, able to match the written word through a field of 3 pictures presented, required mod erate assistance for this. Progress Towards Rehabilitation Goals: Ms. Montes is making excellent progress with her ability to mobilize the wheelchair and ambulate and go up and down steps. She is making slow progress with her expressive aphasia, but still progress nonetheless. Assessment And Plan: Ms. Montes is a 51-year-old patient in the rehabilitation unit with left hemis pheric stroke and dense paresis of the right upper extremity, less so her face and even less weakness in the right lower extremity. She has bipolar disorder, hypertension, dyslipidemia, hypothyroidism, and lumbar radiculopathy. Plan: 1.Continue with physical, occupational, and speech therapy 3.5 hours, 5 of 7 days. 2.Continue Synthroid for hypothyroidism. 3.Senokot S for constipation. 4.Abilify for bipolar disorder. 5.[place] for pain. 6.Eliquis for stroke risk reduction. 7.Lipitor for dyslipidemia. 8.Baclofen for muscle spasms. Comorbidities That Are Continuing To Impact Her Rehabilitation Process: At this point, she is managi ng well. Her comorbid conditions do not negatively impact her rehabilitation. She does have a right footdrop. May need an AFO and she has of course the expressive aphasia, which she is improving, alt filomena slowly. POLY/SIMONEL Voice ID: [id number] Report ID: [id number]
[2022-09-05] MEDS: LEVOTHYROXINE SOD 0.05 MG TABLET PO SCH (06:38)
[2022-09-05] MEDS: APIXABAN 2.5 MG TABLET PO SCH ×2 (07:14→20:30)
[2022-09-05] MEDS: ASPIRIN 81 MG CHEWABLE TABLET PO SCH (07:14)
[2022-09-05] MEDS: TOPIRAMATE 100 MG TAB PO SCH ×2 (07:14→20:29)
[2022-09-05] MEDS: FLUOXETINE 20 MG CAP PO SCH (07:14)
[2022-09-05] MEDS: ARIPiprazole 5 MG TAB PO SCH (07:14)
[2022-09-05] MEDS: DOCUSATE NA 100 MG CAP PO SCH ×2 (07:14→20:30)
[2022-09-05] MEDS: INSULIN -REGULAR HUMAN 50 UNIT/0.5 ML ML SQ SCH ×2 (08:00→20:00)
[2022-09-05] MEDS: GLUCERNA SHAKE 237 ML CAN PO SCH (08:00)
[2022-09-05] MEDS: AMINO ACIDS/PROTEIN HYDROLYS 30 ML LIQUID.PKT PO SCH ×2 (09:03→20:00)
[2022-09-05] MEDS: ATORVASTATIN 80 MG TAB PO SCH (20:30)
[2022-09-05] MEDS: ENSURE HIGH PROTEIN 237 ML CAN PO SCH (20:30)
--- NOTE | 2022-09-05 23:04 | PN ---
Date of Progress Note: 09/05/2022 Time Of Service: 1:15 p.m. Subjective: Ms. Montes is sitting in a chair waiting for therapist. Actually, she is working with the speech pathologist. She is smiling, answering questions, a little more sophisticated than just n odding and answering yes. She is able to repeat a phrase about the weather. She has no complaints o n subjective. Review of Systems: She has no fevers, chills, nausea, vomiting, myalgias, arthralgias, rash. Physical Examination: Vital Signs: Blood pressure 108/60, pulse 61, respiratory rate 17, temperature 98.0, oxygen saturati on 97%. General: Ms. Montes is sitting in a chair. She has a decrease in the right nasolabial fold with fa ir excursions. Neurologic: She has dense paresis of the right upper extremity is unchanged. Right lower extremity, she has 3/5. Left side, upper and lower, 5/5. No other changes on her examination. Laboratory Studies: Blood sugars ranged from 99-107. X-ray/imaging: No new x-ray imaging. Medications: Have remained unchanged and were reviewed. Current Functional Status: Today, she ambulated 250 feet, another 300 feet with contact guard assist ance using a left eric walker outside on even surfaces and slopes. She also ambulated 250 feet and a nother 100 feet using eric walker inside on level surfaces. For occupational therapy, she did toilet transfer with a eric walker, from edge of bed to wheelchair with stand pivot transfer with contact g uard assistance with her speech therapy, she was able to match written word to corresponding picture from review of 3 or 4 with minimum assistance. She was able to copy the following letters independen tly: T, J, P, H, I, L, and Y. Progress Towards Rehabilitation Goals: Ms. Montes is making excellent progress with her mobilizatio n goals from her transfers to a chair, to bed, to toilet, and ambulating 200, 300 feet on different s urfaces, both smooth and uneven. She is making slow progress with her communication, which is the mo st impacted part of her stroke, but she is getting better with written word and comprehending medicat ion. She has more difficulty with her expression. Assessment: Ms. Montes is a 51-year-old patient with left hemispheric stroke and dense right upper extremity paresis, some right facial weakness. She has dysarthria, dysphasia which is mild and aphas ia, more expressive than receptive. She has bipolar disorder, hypertension, dyslipidemia, hypothyroi dism, and lumbar radiculopathy. Plan: 1.Continue with physical, occupational, and speech therapy 3.5 hours 5 of 7 days. 2.Continue with all medications including Synthroid, Senokot-S, Abilify, [place], Eliquis, Lipitor, as pirin, baclofen. Comorbidities That Continue To Impact Rehabilitation Process: At this point, the biggest issue is th e speech which actually is expressive aphasia and she was found better. In addition, she does have a right footdrop and that is improving, but very slowly. POLY/KHANH Voice ID: [id number] Report ID: [id number]
[2022-09-06 04:35] LABS: Absolute Lymphocytes (CBC) 2.2 K/uL (0.7-4.9); Hematocrit 36.2 % (36.0-45.0); Lymphocytes % 38.8 % (15.3-44.8); MCV 83.3 fL (80-100); MPV 9.1 fL (7.6-11.3); RBC Red Blood Cell Count 4.34 M/uL (3.86-4.86)
[2022-09-06 04:56] LABS: Albumin 3.1 g/dL (3.4-5.0); Magnesium 2.2 mg/dL (1.6-2.4); Potassium 3.5 mEq/L (3.5-5.1)
[2022-09-06] MEDS: DOCUSATE NA/SENNA CONC 1 TAB PO PRN (05:26)
[2022-09-06] MEDS: LEVOTHYROXINE SOD 0.05 MG TABLET PO SCH (05:26)
[2022-09-06] MEDS: ARIPiprazole 5 MG TAB PO SCH (07:23)
[2022-09-06] MEDS: DOCUSATE NA 100 MG CAP PO SCH ×2 (07:24→19:52)
[2022-09-06] MEDS: TOPIRAMATE 100 MG TAB PO SCH ×2 (07:24→19:52)
[2022-09-06] MEDS: FLUOXETINE 20 MG CAP PO SCH (07:24)
[2022-09-06] MEDS: ASPIRIN 81 MG CHEWABLE TABLET PO SCH (07:24)
[2022-09-06] MEDS: APIXABAN 2.5 MG TABLET PO SCH ×2 (07:24→19:52)
[2022-09-06] MEDS: INSULIN -REGULAR HUMAN 50 UNIT/0.5 ML ML SQ SCH ×2 (07:25→19:52)
[2022-09-06] MEDS: AMINO ACIDS/PROTEIN HYDROLYS 30 ML LIQUID.PKT PO SCH ×2 (08:00→19:53)
[2022-09-06] MEDS: ENSURE HIGH PROTEIN 237 ML CAN PO SCH ×2 (09:50→19:53)
[2022-09-06] MEDS: ATORVASTATIN 80 MG TAB PO SCH (19:51)
--- NOTE | 2022-09-06 21:27 | PN ---
Date of Progress Note: 09/06/2022 Time Of Service: 1:15 p.m. Subjective: Ms. Montes is doing better today. She has no new complaints. She has a smile on her f percy. She is holding the right hand with the left and extending the fingers moving the wrist upwards. Review of Systems: No fevers, chills, nausea, vomiting, myalgias, arthralgias, rash, or psychiatric issues. Physical Examination: Vital Signs: Blood pressure 107/65, pulse 72, respiratory rate 16, temp is 97, oxygen saturation 99% . Weight 132 pounds, height 5 feet. General: Ms. Montes is sitting in a chair beside bed waiting for therapist and she is in between se ssions. Neuro: She does have a right nasolabial fold decrease with some moderate excursion with smiling. Sh karla has significant expressive aphasia, but can repeat and can get communication across. She often say s, however, yes to many questions, even though the yes is not the appropriate answer. She is moving the right leg better, the right arm 0 movement noted. Laboratory Studies: Complete blood count with differential is essentially normal. Basic metabolic p lenny: Sodium 132, potassium 3.5, chloride 113, carbon dioxide 23, BUN 20, creatinine 0.72, glucose 8 9 up to 104, calcium 8.9. Magnesium 2.2. Albumin 3.1, prealbumin 17.0. X-ray Imaging: None. Medications: Medications have been reviewed and remained unchanged. Functional Status: Today, she did multiple stand pivot transfers independently with a eric walker. She did multiple [id number]-md-[id number] transfers independently. She is independent with bed mobility. She am bulated 150 feet and 100 feet and 350 feet with contact guard assistance using a eric walker and left hand. She ascended and descended the curb and slopes with standby assistance using a eric walker ac tion. With speech pathology, she worked on reading and writing skills, required minimum assistance w ith matching word to a field of 4 pictures. She could identify the target word from a set of 3 of 3 words to the correct picture with minimal assistance. She did unscrew nuts and bolts with left hand and use tweezers for small objects to improve fine motor skills and dexterity of the left hand. It s hould be noted that she is left handed. Progress Towards Rehabilitation Goals: Ms. Montes is making great progress with her mobilization go als that is walking and transferring. The right hand has dense paresis and not improving very well. Her expressive aphasia is improving, but slowly. Assessment: Ms. Montes is a 51-year-old patient in the rehabilitation unit with a left hemispheric stroke and dense right upper extremity weakness, expressive aphasia, and dysarthria. She does have b ipolar disorder hypertension dyslipidemia hypothyroidism and lumbar radiculopathy. Plan: 1.Continue with physical, occupational, and speech therapy 3.5 hours, 5 of 7 days. 2.She will continue her medications including Abilify, Senokot S, Synthroid, [place], Eliquis, Lipitor , aspirin, and baclofen. Comorbidities That Continue To Impact The Rehabilitation Process: At this point, expressive aphasia is most significant finding. Weakness in the right lower extremity is improving, allowing her to amb ulate a little bit better. Right arm 0 movement, slow improvement and likely will require a much aj allyson period of time to begin to be functional. LB/MODL Voice ID: [id number] Report ID: [id number]
[2022-09-07] MEDS: LEVOTHYROXINE SOD 0.05 MG TABLET PO SCH (06:10)
[2022-09-07 06:58] VITALS: BP 106/64; TEMP 97.3
[2022-09-07] MEDS: ENSURE HIGH PROTEIN 237 ML CAN PO SCH (08:00)
[2022-09-07] MEDS: INSULIN -REGULAR HUMAN 50 UNIT/0.5 ML ML SQ SCH (08:00)
[2022-09-07] MEDS: AMINO ACIDS/PROTEIN HYDROLYS 30 ML LIQUID.PKT PO SCH (08:00)
--- NOTE | 2022-09-07 08:20 | P.RH.PN ---
Estimated Length of Stay: 11 Expected Discharge Date: 09/07/22 Discharge Disposition Plan: Home Family Support: Yes Assisted Goal: Mobility, Transfers, Self Care Vital Signs: Last Vital Signs Temp 97.3 F 09/07/22 06:57 Pulse 58 09/07/22 06:57 Resp 17 09/07/22 06:57 BP 106/64 09/07/22 06:57 Pulse Ox 100 09/07/22 06:57 Laboratory: Laboratory Last Values WBC 5.80 thou/uL (4.3-10.9) 09/06/22 04:14 RBC 4.34 M/uL (3.86-4.86) 09/06/22 04:14 Hgb 12.0 g/dL (12.0-15.0) 09/06/22 04:14 Hct 36.2 % (36.0-45.0) 09/06/22 04:14 MCV 83.3 fL (80-100) 09/06/22 04:14 MCH 27.6 pg (27.0-35.0) 09/06/22 04:14 MCHC 33.1 g/dL (32.0-36.0) 09/06/22 04:14 RDW 15.4 % (12.1-15.2) H 09/06/22 04:14 Plt Count 323 thou/uL (152-406) 09/06/22 04:14 MPV 9.1 fL (7.6-11.3) 09/06/22 04:14 Neutrophils % 46.6 % (41.7-73.7) 09/06/22 04:14 Lymphocytes % 38.8 % (15.3-44.8) 09/06/22 04:14 Monocytes % 12.3 % (3.3-12.3) 09/06/22 04:14 Eosinophils % 1.2 % (0-4.4) 09/06/22 04:14 Basophils % 1.1 % (0-1.3) 09/06/22 04:14 Absolute Neutrophils 2.7 K/uL (1.8-8.0) 09/06/22 04:14 Absolute Lymphocytes 2.2 K/uL (0.7-4.9) 09/06/22 04:14 Absolute Monocytes 0.7 K/uL (0.1-1.3) 09/06/22 04:14 Absolute Eosinophils 0.1 K/uL (0-0.5) 09/06/22 04:14 Absolute Basophils 0.1 K/uL (0-0.5) 09/06/22 04:14 Sodium 138 mEq/L (136-145) 09/06/22 04:14 Potassium 3.5 mEq/L (3.5-5.1) 09/06/22 04:14 Chloride 113 mEq/L (98-107) H 09/06/22 04:14 Carbon Dioxide 23 mEq/L (21-32) 09/06/22 04:14 Anion Gap 5.5 mEq/L (5.0-15.0) 09/06/22 04:14 BUN 20 mg/dL (7-18) H 09/06/22 04:14 Creatinine 0.72 mg/dL (0.55-1.02) 09/06/22 04:14 Est GFR (CKD-EPI) 101 ml/min (=/>90) 09/06/22 04:14 Glucose 101 mg/dL (74-106) 09/06/22 04:14 POC Glucose 110 mg/dL (65-120) 09/07/22 06:51 Calcium 8.9 mg/dL (8.5-10.1) 09/06/22 04:14 Magnesium 2.2 mg/dL (1.6-2.4) 09/06/22 04:14 Albumin 3.1 g/dL (3.4-5.0) L 09/06/22 04:14 Prealbumin 17.0 mg/dL (20-40) L 09/06/22 04:14 Urine Color Yellow (Yellow) 08/28/22 18:20 Urine Clarity Clear (Clear) 08/28/22 18:20 Urine pH 6.0 (5.0-7.0) 08/28/22 18:20 Ur Specific [place] 1.020 (1.005-1.030) 08/28/22 18:20 Glucose (UA)(Auto) Negative (Negative) 08/28/22 18:20 Urine Ketones Negative (Negative) 08/28/22 18:20 Urine Blood Negative (Negative) 08/28/22 18:20 Urine Nitrite Negative (Negative) 08/28/22 18:20 Urine Bilirubin Negative (Negative) 08/28/22 18:20 Urine Urobilinogen 0.2 (Normal) 08/28/22 18:20 Ur Leukocyte Esterase Negative Cesar/uL (Negative) 08/28/22 18:20 Urine RBC <5 /HPF (None Seen) 08/28/22 18:20 Urine WBC <5 /HPF (<5) 08/28/22 18:20 Urine WBC Clumps Rare /HPF (None Seen) 08/28/22 18:20 Ur Squamous Epith Cells <5 /HPF (None Seen) 08/28/22 18:20 Urine Bacteria None seen /HPF (<20) 08/28/22 18:20 Hyaline Casts 0-5 /LPF (None Seen) 08/28/22 18:20 Urine Mucus 1+ /HPF (None Seen) 08/28/22 18:20 Urine Culture Reflexed Not needed 08/28/22 18:20 Urine Total Protein Negative (Negative) 08/28/22 18:20 Weight: 133 lb 1.6 oz Wound Present: No Closed Surgical Incision Present: No Negative Pressure Wound Therapy Present: No Physician Update: Making fair overall progress with therapy. Most limited by expressive aphasia. Dense right arm weakness and less so right leg. She needs a right hand splint and right leg AFO. Summary: Patient's care plan and termite helper goals have been reviewed and revised as necessary. Please see the Rehabilitation Signature page for all necessary signatures.
[2022-09-07] MEDS: ASPIRIN 81 MG CHEWABLE TABLET PO SCH (08:25)
[2022-09-07] MEDS: DOCUSATE NA 100 MG CAP PO SCH (08:25)
[2022-09-07] MEDS: ARIPiprazole 5 MG TAB PO SCH (08:25)
[2022-09-07] MEDS: APIXABAN 2.5 MG TABLET PO SCH (08:26)
[2022-09-07] MEDS: FLUOXETINE 20 MG CAP PO SCH (08:26)
[2022-09-07] MEDS: TOPIRAMATE 100 MG TAB PO SCH (08:28)
--- NOTE | 2022-09-15 20:33 | DS ---
Date of Discharge: 09/07/2022 Discharge Diagnoses: Left hemispheric stroke with dense right arm greater than leg paresis and expre ssive aphasia along with less receptive aphasia, bipolar disorder, hypertension, dyslipidemia, hypogl ycemia, hypothyroidism, and a right hemineglect, prediabetes, lumbar radiculopathy. Discharge Condition: Good. Allergies: SULFA. Activity: As tolerated including diet. Medications: Tylenol 650 every 4 hours as needed, [place] 5/325 every 6 hours as needed, Xanax 0.5 mg at night as needed, ProSource amino acids 30 mL twice daily, Eliquis 2.5 mg twice daily, Abilify 5 mg daily, aspirin 81 mg daily, Lipitor 80 mg at bedtime, baclofen 10 mg 3 times daily, Plavix 75 mg [place] ly, Colace 100 mg twice daily, Prozac 20 mg daily, Synthroid 0.05 mg daily, melatonin 3 mg at bedtime , Ensure high protein 237 mL twice daily, Senokot S 2 at bedtime, topiramate 100 mg twice daily. Follow Up: With flow nurse and primary care physician as scheduled. Laboratory Studies: Complete blood count with differential is unremarkable. Basic metabolic panel u nremarkable. Prealbumin 17. Glucose ranged from 89 to 110. Hospital Course: Ms. Montes is a 51-year-old patient and she is left handed and she came to [facility] after having a stroke. She apparently had difficulty moving her right side and getting her words out as she woke up, but still went to work. But at work, she was sent to [facility] where she was actually transferred by [facility] to [facility] in [place] and diagnosed wit h a stroke. Her NIH Stroke Scale was 10. Head CT scan showed hyperdense left frontoparietal region with the subacute stroke suspected. CT angiogram showed left internal carotid artery occlusion with a large mismatch and CT perfusion angiogram showed 70% narrowing of left internal carotid artery. Maryana acosta had a thrombectomy on 08/18 and a stroke workup. However, she had persistent weakness at 1/5 stren h right upper extremity and 3 in the right lower extremity with significant expressive aphasia, mor e global initially including but more expressive than receptive. She was put on n.p.o., thin liquids , but eventually was cleared to have more of a regular diet. She had been with [facility] or her aggressive inpatient rehabilitation due to her significant need for improving her ability to t ransfer, to mobilize and to improve her swallowing. Throughout hospitalization, she worked with [facility], occupational and speech therapy. She had no evidence of a systemic infection with normal white count throughout. Hemoglobin maintained in normal level. Her prealbumin was slightly low, at disch arge it was 17, on admission it was 15.6, and blood glucose ranged from 101 to about 120. Progress Made With Her Physical And Occupational Therapy: By her discharge with the bed mobilization , she was requiring minimum assistance with turning. With ambulating with a eric walker, she did cov er 250 feet with good tolerance on multiple surfaces. Limitations: Did improve full strength, full coordination, and poor safety awareness. Stairs: She was up and down 15 steps with fair tolerance a nd bilateral hand rails. Car transfer done with a eric walker. It was recommended that she have a r ight foot AFO because of significant weakness on discharge. That was initiated and she will have con tinued need for physical and occupational therapy when she is discharged home. Regarding her occupat ional therapy, she did tub transfer with no limitations. Grooming was done with a sponge without hoover itations. She did have poor coordination. She did make significant progress, but required continued therapy. Regarding her speech, she did require moderate assistance for verbal expression and maximu m assistance for sentence formation. In terms of her conversation, word intelligibility is 100%, sen tence 90%, fluency 50%. It is recommended that she continue with aggressive speech therapy to assist her improvement. POLY/KHANH Voice ID: [id number] Report ID: [id number]
== END 2022-09-07 09:45 | disposition home health service (06) | DRG 57 ==
LOC: 5TH 07:05
PROVIDERS: ADMIT Psychiatry & Neurology Neurology with Special Qualifications in Child Neurology; ATTEND Psychiatry & Neurology Neurology with Special Qualifications in Child Neurology
DX: I69.320 Aphasia following cerebral infarction (principal); I69.353 Hemiplegia and hemiparesis following cerebral infarction affecting right non-dominant side; G93.40 Encephalopathy, unspecified; E16.2 Hypoglycemia, unspecified; G47.00 Insomnia, unspecified; I10 Essential (primary) hypertension; K59.09 Other constipation; M54.16 Radiculopathy, lumbar region; E78.5 Hyperlipidemia, unspecified; E03.9 Hypothyroidism, unspecified; F43.10 Post-traumatic stress disorder, unspecified; F31.9 Bipolar disorder, unspecified
CPT/HCPCS: 36415; 80048; 81001; 82040; 82947; 83735; 84134; 85025; 87086; 87088; 92507; 92523; 94010; 97110; 97112; 97116; 97161; 97165; 97530; J1815

== ENCOUNTER 2023-12-14 13:46 | Emergency (ER) | payer BC ==
[2023-12-14] MEDS ORDERED: HYDROCODONE/APAP 7.5/325 MG TAB ONE (14:38)
--- NOTE | 2023-12-14 14:55 | RAD REPORT ---
EXAM DESCRIPTION: RAD - Wrist Right 3 View - 12/14/2023 2:45 pm CLINICAL HISTORY: Right wrist pain status post injury FINDINGS: Nondisplaced fracture distal right radius. Minimally displaced fracture distal ulna Osteoporosis. No dislocation is seen
--- NOTE | 2023-12-14 15:18 | ER ---
Nurse's Notes [facility] Name: Shannan Montes Age: 53 yrs Sex: Female : 1970 Arrival Date: 12/14/2023 Time: 13:46 Bed 19 Private MD: Diagnosis: Nondisplaced distal radial and ulnar fractures, right Presentation: 12/13 14:11 Chief complaint: Patient states: Right wrist pain s/p fall on . Pt states that cm10 she tripped and fell on the rug. Coronavirus screen: Client denies travel out of the [place] in the last 14 days. At this time, the client does not indicate any symptoms associated with coronavirus-19. Ebola Screen: Patient denies travel to an Ebola-affected area in the 21 days before illness onset. No symptoms or risks identified at this time. Initial Sepsis Screen: Does the patient meet any 2 criteria? No. Patient's initial sepsis screen is negative. Does the patient have a suspected source of infection? No. Patient's initial sepsis screen is negative. Risk Assessment: Do you want to hurt yourself or someone else? Patient reports no desire to harm self or others. Onset of symptoms was December 14, 2023. 14:11 Method Of Arrival: Wheelchair cm10 14:11 Acuity: JAYESH 4 cm10 Triage Assessment: 14:13 General: Appears in no apparent distress. comfortable, Behavior is calm, cooperative. cm10 Neuro: No deficits noted. Level of Consciousness is awake, alert, obeys commands, Oriented to person, place, time, situation, Appropriate for age. Respiratory: No deficits noted. Airway is patent Respiratory effort is even, unlabored, Respiratory pattern is regular, symmetrical. 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 - Infectious Disease History:: Denies. - Social history:: Smoking status: Patient denies any tobacco usage or history of. Screenin:15 [facility] ED Fall Risk Assessment (Adult) History of falling in the last 3 months, me1 including since admission Yes- single mechanical fall (1 pt) Confusion or Disorientation No (0 pts) Intoxicated or Sedated No (0 pts) Impaired Gait Yes (1 pt) Mobility Assist Device Used Yes (1 pt) Altered Elimination No (0 pt) Score/Fall Risk Level 0 - 2 = Low Risk Maintained a safe environment, Provided non-skid footwear, Hourly rounding (assess needs \T\ fall precautionary measures) done. Abuse screen: Denies threats or abuse. Nutritional screening: No deficits noted. Tuberculosis screening: No symptoms or risk factors identified. Assessment: 14:15 General: Appears uncomfortable, well groomed, well developed, well nourished, Behavior me1 is calm, cooperative, appropriate for age, Reports Right wrist pain s/p fall on . Pt states that she tripped and fell on the rug. Pain: Complains of pain in right hand and dorsum of right hand Pain does not radiate. Pain currently is 7 out of 10 on a pain scale. Quality of pain is described as aching, Pain began suddenly, Is continuous. Neuro: Level of Consciousness is awake, alert, obeys commands, Oriented to person, place, time, situation, Appropriate for age. Cardiovascular: Patient's skin is warm and dry. Respiratory: Airway is compromised Respiratory effort is even, unlabored, Respiratory pattern is regular, symmetrical. GI: No signs and/or symptoms were reported involving the gastrointestinal system. : No signs and/or symptoms were reported regarding the genitourinary system. EENT: No signs and/or symptoms were reported regarding the EENT system. Derm: Skin is intact, is healthy with good turgor, Skin is pink, warm \T\ dry. Musculoskeletal: Reports pain in right hand and dorsum of right hand. Injury Description: trip and fall on a rug on . Vital Signs: 14:11 BP 102 / 72; Pulse 89; Resp 18; Temp 97.4; Pulse Ox 97% on R/A; Weight 68.04 kg; Height cm10 5 ft. 0 in. ; Pain 7/10; 15:41 BP 113 / 82; Pulse 76; Resp 16; Temp 98.4; Pulse Ox 98% on R/A; me1 14:11 Body Mass Index 29.29 (68.04 kg, 152.4 cm) cm10 14:11 Pain Scale: Adult cm10 ED Course: 13:51 Patient arrived in ED. mr 13:54 Tia Parry PA-C is PHCP. sb4 13:54 Jarvis Lundberg MD is Attending Physician. sb4 14:12 Triage completed. cm10 14:13 Arm band placed on Patient placed in an exam room, on a stretcher. cm10 14:15 Patient has correct armband on for positive identification. Bed in low position. Call me1 light in reach. Side rails up X2. Provided Education on: POC. Verbalized understanding. . Client placed on continuous cardiac and pulse oximetry monitoring. NIBP monitoring applied. Pulse ox on. NIBP on. 14:15 No provider procedures requiring assistance completed. me1 14:39 Maria M Edmond, [place] is Primary Nurse. me1 14:47 Wrist Right 3 View XRAY In Process Unspecified. EDMS 15:17 Joseluis Malik MD is Referral Physician. sb4 15:41 Patient did not have IV access during this emergency room visit. me1 Administered Medications: 14:43 Drug: Hydrocodone-Acetaminophen PO (7.5 mg-325 mg) 1 tabs PO once Route: PO; me1 15:30 Follow up: Response: No adverse reaction; Pain is unchanged, physician notified me1 Medication: 14:15 VIS not applicable for this client. me1 Outcome: 15:18 Discharge ordered by . sb4 15:41 Discharged to home via wheelchair, with family, me1 15:41 Condition: stable 15:41 Discharge instructions given to patient, family, Instructed on discharge instructions, follow up and referral plans. medication usage, Demonstrated understanding of instructions, follow-up care, medications, Prescriptions given X 1, 15:42 Patient left the ED. me1 Signatures: Dispatcher [employer] EDVA ContrerasMichelle fraire, Marvel Reg Tia Parry PA-C PA-C sb4 Dayan Duncan, [place] RN cm10 Maria M Edmond, [place] RN me1 Corrections: (The following items were deleted from the chart) 15:31 14:11 Chief complaint: Patient states: Right wrist pain s/p fall on . Pt states me1 that she tripped and fell on the rug. cm10
--- NOTE | 2023-12-14 15:18 | EDPHYS ---
Physician Documentation [facility] Name: Shannan Montes Age: 53 yrs Sex: Female : 1970 Arrival Date: 12/14/2023 Time: 13:46 Bed 19 Private MD: NOAH Physician Jarvis Lundberg HPI: 12/13 14:18 This 53 yrs old Female presents to ER via Wheelchair with complaints of Fall Injury, sb4 Arm Pain. 14:19 The patient or guardian reports injury, pain. The complaints affect the dorsum of right sb4 hand. Context: The problem was sustained at home, resulted from a fall. Onset: The symptoms/episode began/occurred 2 day(s) ago. Modifying factors: The symptoms are alleviated by nothing, the symptoms are aggravated by nothing. The patient has not experienced similar symptoms in the past. patient with history of CVA permanent right sided deficits, right arm contracted, tripped and fell onto right hand/wrist 2 days ago. complaining of pain to the area. 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 - Infectious Disease History:: Denies. - Social history:: Smoking status: Patient denies any tobacco usage or history of. ROS: 14:19 Constitutional: Negative for fever, chills, and weight loss, sb4 14:19 MS/extremity: Positive for injury or acute deformity, pain, of the right hand, 14:19 All other systems are negative, Exam: 14:19 Constitutional: This is a well developed, well nourished patient who is awake, alert, sb4 and in no acute distress. Head/Face: Normocephalic, atraumatic. Eyes: Extra-ocular motions intact. Periorbital areas with no swelling, redness, or edema. ENT: Mucous membranes moist. 14:19 Musculoskeletal/extremity: ROM: the patient is contracted, Circulation is intact in all extremities. Pulses: are normal with no appreciated deficits, 14:19 Neuro: Motor: the patient is contracted, right arm/wrist, Vital Signs: 14:11 BP 102 / 72; Pulse 89; Resp 18; Temp 97.4; Pulse Ox 97% on R/A; Weight 68.04 kg; Height cm10 5 ft. 0 in. ; Pain 7/10; 15:41 BP 113 / 82; Pulse 76; Resp 16; Temp 98.4; Pulse Ox 98% on R/A; me1 14:11 Body Mass Index 29.29 (68.04 kg, 152.4 cm) cm10 14:11 Pain Scale: Adult cm10 MDM: 14:02 Patient medically screened. sb4 15:17 Data reviewed: vital signs, nurses notes, radiologic studies, I have discussed the sb4 patient's presentation/case with the attending Emergency Department Physician; and as a result, I will discharge patient. Counseling: I had a detailed discussion with the patient and/or guardian regarding the historical points, exam findings, and any diagnostic results supporting the discharge/admit diagnosis, radiology results, to return to the emergency department if symptoms worsen or persist or if there are any questions or concerns that arise at home. 12/13 14:17 Order name: Wrist Right 3 View XRAY; Complete Time: 14:56 sb4 12/13 15:17 Order name: Wrist Splint; Complete Time: 15:33 sb4 Administered Medications: 14:43 Drug: Hydrocodone-Acetaminophen PO (7.5 mg-325 mg) 1 tabs PO once Route: PO; me1 15:30 Follow up: Response: No adverse reaction; Pain is unchanged, physician notified me1 Disposition Summary: 12/14/23 15:18 Discharge Ordered Notes: Location: Home sb4 Problem: new sb4 Symptoms: are unchanged sb4 Condition: Stable sb4 Diagnosis - Nondisplaced distal radial and ulnar fractures, right sb4 Followup: sb4 - With: Joseluis Malik MD - When: As needed - Reason: Recheck today's complaints, Re-evaluation by your physician Discharge Instructions: - Discharge Summary Sheet sb4 - Wrist Fracture Treated With Immobilization, [id number] sb4 Forms: - Prescription Opioid Use sb4 - Patient Portal Instructions sb4 - Leadership Thank You Letter sb4 Prescriptions: - Tramadol 50 mg Oral Tablet - take 1 tablet ORAL route every 8 hours as needed; 12 tablet; Refills: 0, sb4 Product Selection Permitted Signatures: Dispatcher [employer] EDTia Palacio PA-C PA-C sb4 Dayan Duncan RN RN cm10 Maria M Edmond RN RN me1 Corrections: (The following items were deleted from the chart) 14:47 14:17 Hand Right 3 View+[id number].[email or web address] ordered. EDMS EDMS
[2023-12-14 15:57] VITALS: BP 113/82; TEMP 98.4; O2SAT 98
== END 2023-12-14 15:42 | disposition home or self-care (01) ==
LOC: ER 13:46
PROC: 2W3CX1Z Immobilization of Right Lower Arm using Splint (ICD-10-PCS; principal; 2023-12-14)
DX: S52.501A Unspecified fracture of the lower end of right radius, initial encounter for closed fracture (principal); S52.601A Unspecified fracture of lower end of right ulna, initial encounter for closed fracture; W01.0XXA Fall on same level from slipping, tripping and stumbling without subsequent striking against object, initial encounter; Y92.009 Unspecified place in unspecified non-institutional (private) residence as the place of occurrence of the external cause
CPT/HCPCS: 99284

== ENCOUNTER 2024-01-02 19:54 | Emergency (ER) | payer BC, MEDICARE ==
--- NOTE | 2024-01-02 20:21 | RAD REPORT ---
EXAM DESCRIPTION: CT - Ct Stroke Brain Wo Cont - 01/02/2024 8:07 pm CLINICAL HISTORY: Right-sided weakness COMPARISON: 2011 TECHNIQUE: Computed axial tomography of the head was obtained. All CT scans are performed using dose optimization technique as appropriate and may include automated exposure control or mA/KV adjustment according to patient size. FINDINGS: 10 centimeter low-density area left cerebrum compatible with cystic encephalomalacia secon berry to old infarction. A couple of tiny areas of increased density are present within this. . No hydrocephalus. No extra-axial fluid collection is noted. Fluid within the sinuses/ mastoids is not seen. IMPRESSION: 10 centimeter old infarct left cerebrum. Couple of tiny densities within this probably calcifications. Micro bleeds can have a similar appeara nce. MRI of the brain would be helpful to differentiate between these Dr Sauceda of the emergency room was notified at 8:15 p.m. on January 02, 2024
--- NOTE | 2024-01-02 20:35 | RAD REPORT ---
EXAM DESCRIPTION: Kell Single View01/02/2024 8:17 pm CLINICAL HISTORY: Pain, right-sided weakness, confusion COMPARISON: 2011 FINDINGS: The lungs appear clear of acute infiltrate. The heart is normal size Old left clavicle IMPRESSION: No acute abnormalities displayed
[2024-01-02 20:46] LABS: Absolute Basophils 0.1 K/uL (0-0.5); Absolute Eosinophils 0.2 K/uL (0-0.5); Absolute Monocytes 0.9 K/uL (0.1-1.3); Absolute Neutrophil 5.2 K/uL (1.8-8.0); Basophils % 0.7 % (0-1.3); Eosinophils % 2.5 % (0-4.4); Hemoglobin 11.8 g/dL (12.0-15.0); Lymphocytes % 32.3 % (15.3-44.8); MCH 29.5 pg (27.0-35.0); MCHC 32.9 g/dL (32.0-36.0); MCV 89.8 fL (80-100); MPV 7.8 fL (7.6-11.3); Monocytes % 9.2 % (3.3-12.3); Neutrophils % 55.3 % (41.7-73.7); Platelets 334 thou/uL (152-406); RBC Red Blood Cell Count 4.01 M/uL (3.86-4.86); Red Cell Distribution Width 13.8 % (12.1-15.2)
[2024-01-02] MEDS ORDERED: NA CHLORIDE 0.9% 1,000 ML ONE (20:46)
[2024-01-02 20:49] LABS: PT Prothrombin Time 10.7 SECONDS (9.4-12.5); Protime INR 0.95
[2024-01-02 20:57] LABS: Anion Gap 7.6 mEq/L (5.0-15.0); Potassium 3.6 mEq/L (3.5-5.1); Troponin High Sensitivity 4.9 pg/mL (<58.9)
[2024-01-02 21:09] LABS: SARS-CoV-2 Antigen CONTROL BLUE LINE VIS/BG OK; SARS-CoV-2 Antigen Rapid Res Negative (Negative)
[2024-01-02 21:10] LABS: ALT/SGPT 62 U/L (13-56); AST/SGOT 31 U/L (15-37); Albumin 3.3 g/dL (3.4-5.0); Albumin/Globulin Ratio 0.8 (1.1-1.8); Alkaline Phosphatase 124 U/L (45-117); Bilirubin Total 0.2 mg/dL (0.2-1.0); Globulin 3.9 g/dL (2.3-3.5); Protein, Total 7.2 g/dL (6.4-8.2)
[2024-01-02 21:10] LABS: Barbiturates NEGATIVE (NEGATIVE); Benzodiazepines POSITIVE (NEGATIVE); Cocaine NEGATIVE (NEGATIVE); METHAMPHETAM NEGATIVE (NEGATIVE); Methadone NEGATIVE (NEGATIVE); Opiates NEGATIVE (NEGATIVE); Phencyclidine NEGATIVE (NEGATIVE); THC Cannibis NEGATIVE (NEGATIVE)
[2024-01-02 21:11] LABS: Bilirubin Direct < 0.2 mg/dL (0-0.2); C-Reactive Protein < 2.90 mg/L (<3.00)
--- NOTE | 2024-01-02 22:38 | RAD REPORT ---
EXAM DESCRIPTION: CTHead angio01/02/2024 10:06 pm CLINICAL HISTORY: Right shadow weakness/CVA COMPARISON: none TECHNIQUE: 100 cc Isovue [address] angiogram of the head was obtained. 3D MIPS reconstruction performed. All CT scans are performed using dose optimization technique as appropriate and may include automated exposure control or mA/KV adjustment according to patient size. FINDINGS: Distal left internal carotid artery is occluded. Diminished vascularity left anterior cerebral and left middle cerebral arteries. 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 Diminished vascularity left anterior cerebral and left middle cerebral artery likely chronic No acute vascular abnormality suspected
--- NOTE | 2024-01-02 22:39 | RAD REPORT ---
EXAM DESCRIPTION: Alex Angio01/02/2024 10:06 pm CLINICAL HISTORY: Right-sided weakness. CVA COMPARISON: None TECHNIQUE: 100 cc Isovue [address] angiogram of the neck was obtained. 3D MIPS reconstruction performed. All CT scans are performed using dose optimization technique as appropriate and may include automated exposure control or mA/KV adjustment according to patient size. FINDINGS: Portion of the proximal internal carotid artery, all of the mid and distal left internal c arotid artery are small in caliber Remainder of common carotid, internal carotid external carotid arteries bilaterally are unremarkable Vertebral arteries unremarkable [place] Mild stenosis 0 to 49 % Moderate stenosis 50-69% Severe stenosis 70-99% IMPRESSION: Severe stenosis involving a portion of the the proximal left internal carotid, all of th e mid and distal left internal carotid artery. No flow is seen within the very distal left internal c arotid artery. This most likely is a chronic finding for the patient No acute vascular abnormality is suspected
--- NOTE | 2024-01-03 00:07 | EDPHYS ---
Physician Documentation [facility] Name: Shannan Montes Age: 53 yrs Sex: Female : 1970 Arrival Date: 01/02/2024 Time: 19:54 Bed 2 Private MD: ED Physician Louis Moran HPI: 01/01 22:29 This 53 yrs old Female presents to ER via EMS with complaints of Altered sp4 Mental Status. 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 Patient arrived with EMS. . Historical: - Allergies: 01/01 20:17 Sulfa (Sulfonamide Antibiotics); jb4 20:17 Warfarin; jb4 - PMHx: 20:17 Bipolar disorder; bulging discs-back pain with pinched nerves.; Cerebrovascular jb4 accident; PTSD; Seizure; - PSHx: 20:17 foot; wrist; jb4 - Immunization history:: Adult Immunizations. - Infectious Disease History:: Denies. - Family history:: not pertinent. - Social history:: Smoking status: unknown. ROS: 01/02 00:37 Constitutional: Negative for fever, chills, and weight loss, generalized weakness sp4 positive acute urinary incontinence positive acute speech slurring positive feeling unwell. All other systems are negative, Exam: 00:37 Constitutional: This is a well developed, well nourished patient who is awake, alert, sp4 and in no acute distress. Chronic right-sided hemiparesis from prior CVA Head/Face: Normocephalic, atraumatic. Eyes: Pupils equal round and reactive to light, extra-ocular motions intact. Lids and lashes normal. Conjunctiva and sclera are not injected. Cornea within normal limits. Periorbital areas with no swelling, redness, or edema. ENT: Nares patent. No nasal discharge, no septal abnormalities noted. Tympanic membranes are normal and external auditory canals are clear. Oropharynx with no redness, swelling, or masses, exudates, or evidence of obstruction, uvula midline. Mucous membranes moist. Neck: Trachea midline, no thyromegaly or masses palpated, and no cervical lymphadenopathy. Supple, full range of motion without nuchal rigidity, or vertebral point tenderness. Chest/axilla: Normal chest wall appearance and motion. Nontender with no deformity. No lesions are appreciated. Cardiovascular: Regular rate and rhythm with a normal S1 and S2. No gallops, murmurs, or rubs. Normal PMI, no JVD. No pulse deficits. Respiratory: Lungs have equal breath sounds bilaterally, clear to auscultation and percussion. No rales, rhonchi or wheezes noted. No increased work of breathing, no retractions or nasal flaring. Abdomen/GI: Soft, with normal bowel sounds. No distension or tympany. No guarding or rebound. No evidence of tenderness throughout. Back: No spinal tenderness. No costovertebral tenderness. Skin: Warm, dry with normal turgor. Normal color with no rashes, no lesions, and no evidence of cellulitis. MS/ Extremity: Pulses equal, no cyanosis. Chronic contractures right arm right lower extremity from prior CVA. Eyes unremarkable Neuro: Awake and alert, GCS 15, oriented to person, place, time, and situation. With right dense hemiparesis from prior CVA, no new neurologic deficits reported Psych: Awake, alert, with orientation to person, place and time. Behavior, mood, and affect are within normal limits 00:41 ECG was reviewed by the Attending Physician. EKG at 2107 sinus rhythm at the rate of sp4 76, no ST elevation or depression, respiratory motion artifact Vital Signs: 01/01 20:14 BP 130 / 94; Pulse 75; Resp 28; Temp 98.3(O); Pulse Ox 100% on R/A; Pain 6/10; jb4 20:56 BP 136 / 92; Pulse 72; Resp 19; Pulse Ox 100% on R/A; kd3 22:05 BP 141 / 79; Pulse 81; Resp 16; Pulse Ox 100% ; kd3 23:07 BP 144 / 90; Pulse 76; Resp 18; Pulse Ox 94% on R/A; kd3 23:51 BP 140 / 91; Pulse 77; Resp 16; Pulse Ox 100% on R/A; kd3 20:14 Pain Scale: Adult jb NIH Stroke Scale Scores: 20:17 NIHSS Score: 9 [facility] [place] Coma Score: 23:41 Eye Response: spontaneous(4). Motor Response: obeys commands(6). Verbal Response: jb4 confused(4). Total: 14. 01/02 00:37 Eye Response: spontaneous(4). Motor Response: obeys commands(6). Verbal Response: sp4 oriented(5). Total: 15. MDM: 01/01 20:03 Patient medically screened. sp4 22:30 ED course: EXAM DESCRIPTION: CT - Ct Stroke Brain Wo Cont - 01/02/2024 8:07 pm CLINICAL sp4 HISTORY: Right-sided weakness COMPARISON: 2011 TECHNIQUE: Computed axial tomography of the head was obtained. All CT scans are performed using dose optimization technique as appropriate and may include automated exposure control or mA/KV adjustment according to patient size. FINDINGS: 10 centimeter low-density area left cerebrum compatible with cystic encephalomalacia secondary to old infarction. A couple of tiny areas of increased density are present within this. . No hydrocephalus. No extra-axial fluid collection is noted. Fluid within the sinuses/ mastoids is not seen. IMPRESSION: 10 centimeter old infarct left cerebrum. Couple of tiny densities within this probably calcifications. Micro bleeds can have a similar appearance. MRI of the brain would be helpful to differentiate between these Dr Sauced[facility] of [facility] emergency [facility] ED course: EXAM DESCRIPTION: CT - Ct Stroke Brain Wo Cont - 01/02/2024 8:07 pm CLINICAL sp4 HISTORY: Right-sided weakness COMPARISON: 2011 TECHNIQUE: Computed axial tomography of the head was obtained. All CT scans are performed using dose optimization technique as appropriate and may include automated exposure control or mA/KV adjustment according to patient size. FINDINGS: 10 centimeter low-density area left cerebrum compatible with cystic encephalomalacia secondary to old infarction. A couple of tiny areas of increased density are present within this. . No hydrocephalus. No extra-axial fluid collection is noted. Fluid within the sinuses/ mastoids is not seen. IMPRESSION: 10 centimeter old infarct left cerebrum. Couple of tiny densities within this probably calcifications. Micro bleeds can have a similar appearance. MRI of the brain would be helpful to differentiate between these Dr Sau[place] of the emergency [place] 22:[place] ED course: EXAM DESCRIPTION: Alex Angio01/02/2024 10:06 pm CLINICAL HISTORY: sp4 Right-sided weakness. CVA COMPARISON: None TECHNIQUE: 100 cc Isovue [address] angiogram of the neck was obtained. 3D MIPS reconstruction performed. All CT scans are performed using dose optimization technique as appropriate and may include automated exposure control or mA/KV adjustment according to patient size. FINDINGS: Portion of the proximal internal carotid artery, all of the mid and distal left internal carotid artery are small in caliber Remainder of common carotid, internal carotid external carotid arteries bilaterally are unremarkable Vertebral arteries unremarkable [place] Mild stenosis 0 to 49 % Moderate stenosis 50-69% Severe stenosis 70-99% IMPRESSION: Severe stenosis involving a portion of the the proximal left internal carotid, all of the mid and distal left internal carotid artery. No flow is seen within the very distal left internal carotid artery. This most likely is a chronic finding for the patient No acute vascular abnormality is suspected. ED course: EXAM DESCRIPTION: CTHead angio01/02/2024 10:06 pm CLINICAL HISTORY: Right shadow weakness/CVA COMPARISON: none TECHNIQUE: 100 cc Isovue [address] angiogram of the head was obtained. 3D MIPS reconstruction performed. All CT scans are performed using dose optimization technique as appropriate and may include automated exposure control or mA/KV adjustment according to patient size. FINDINGS: Distal left internal carotid artery is occluded. Diminished vascularity left anterior cerebral and left middle cerebral arteries. 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 Diminished vascularity left anterior cerebral and left middle cerebral artery likely chronic No acute vascular abnormality suspected . 22:52 ED course: EXAM DESCRIPTION: Kell Single View01/02/2024 8:17 pm CLINICAL HISTORY: sp4 Pain, right-sided weakness, confusion COMPARISON: 2011 FINDINGS: The lungs appear clear of acute infiltrate. The heart is normal size Old left clavicle IMPRESSION: No acute abnormalities displayed. 01/02 00:41 Differential Diagnosis: CVA, hypoglycemia, intracranial bleed, overdose, seizure, sp4 sepsis, volume depletion. Data reviewed: vital signs, nurses notes, EMS record, old medical records, EKG, radiologic studies, CT scan, plain films. Consideration of Admission/Observation Escalation of care including admission/observation considered. 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 01/01 19:56 Order name: Basic Metabolic Panel; Complete Time: 21:31 01/01 19:56 Order name: CBC with Diff; Complete Time: 21: 01/01 19:56 Order name: High Sensitivity Troponin; Complete Time: 21:31 01/01 19:56 Order name: Protime (+inr); Complete Time: 21:31 01/01 19:56 Order name: Ptt, Activated; Complete Time: 21: 01/01 20:02 Order name: LFT's; Complete Time: 21: [facility] 01/01 20:03 Order name: T4 Free; Complete Time: 21: [facility] 01/01 20:03 Order name: TSH; Complete Time: : [facility] 01/01 20:03 Order name: CRP; Complete Time: : [facility] 01/01 20:03 Order name: SARS RAPID; Complete Time: 21: [facility] 01/01 20:03 Order name: AMMONIA; Complete Time: : [facility] 01/01 20:03 Order name: Alcohol Level; Complete Time: : [facility] 01/01 20:03 Order name: Urine Drug Screen; Complete Time: 21: [facility] 01/01 19:56 Order name: CT Stroke Brain w/o Contrast 01/01 19:56 Order name: Stroke CXR 1 View 01/01 21:31 Order name: CT Neck Angio [facility] 01/01 21:55 Order name: Head angio [facility] 01/01 19:56 Order name: EKG; Complete Time: 19:56 01/01 19:56 Order name: Accucheck; Complete Time: 20:52 01/01 19:56 Order name: Cardiac monitoring; Complete Time: 20:52 01/01 19:56 Order name: EKG - Nurse/Tech; Complete Time: 21:11 01/01 19:56 Order name: IV Saline Lock; Complete Time: 20:52 01/01 19:56 Order name: Labs collected and sent; Complete Time: 20:52 01/01 19:56 Order name: NPO; Complete Time: 20:52 01/01 19:56 Order name: O2 Per Protocol; Complete Time: 20:52 01/01 19:56 Order name: O2 Sat Monitoring; Complete Time: 20:52 rn 01/01 19:56 Order name: Stroke Swallow Screen; Complete Time: 23:44 rn EC:41 Rate is 76 beats/min. Rhythm is regular, Normal Sinus Rhythm. QRS [place] is Normal. [place] sp4 interval is normal. QRS interval is normal. QT interval is normal. No Q waves. No ST changes noted. Clinical impression: No evidence of ischemia. Interpreted by me. Reviewed by me. Administered Medications: 01/01 20:50 Drug: NS 0.9% IV 1000 ml IV at 1 bolus Per protocol; 1000 mL bolus Route: IV; Rate: 1 jb4 bolus; Site: left antecubital; Disposition Summary: 01/03/24 00:07 Transfer Ordered Notes: Transfer Location: [facility] sp4 Reason: Higher level of care sp4 Condition: Stable sp4 Problem: new sp4 Symptoms: have improved sp4 Accepting Physician: [facility] (01/03/24 00:48) jb4 Diagnosis - Acute Hemorrhagic CVA , generalized weakness, acute choking episode, punctate sp4 intracranial hemorrhage Discharge Instructions: - Discharge Summary Sheet jb4 Forms: - SBAR form jb4 - Medication Reconciliation Form sp4 NIH Stroke Scale - NIH Stroke Score Date: 01/02/2024 Time: 20:17 Total Score = 9 10. Dysarthria (speech clarity - read or repeat words) - 0(Normal) 11. Extinction and Inattention (visual/tactile/auditory/spatial/personal) - 0(No abnormality) 1a. Level of Consciousness (LOC) - 0(Alert) 1b. Level of Consciousness (LOC) (Month \T\ Age) - 1(One) 1c. LOC Commands (Open \T\ Closes Eyes/Telegraph Plant Maintainer) - 0(Both) 2. Best Gaze (Lateral Gaze Paresis) - 0(Normal) 3. Visual Field Loss - 0(No visual loss) 4. Facial Palsy - 2(Partial paralysis) 5a. Left Arm: Motor (10-second hold) - 0(No drift) 5b. Right Arm: Motor (10-second hold) - 3(No effort against gravity) 6a. Left Leg: Motor (5-second hold - always test supine) - 0(No drift) 6b. Right Leg: Motor (5-second hold - always test supine) - 3(No effort against gravity) 7. Limb Ataxia (finger/nose \T\ heel/sharma - test with eyes open) - 0(Absent) 8. Sensory Loss (pinprick arms/legs/face) - 0(Normal) 9. Best Language: Aphasia (description/naming/reading) - 0(No aphasia) Initials: jb4 Signatures: Dispatcher [employer] EDMS Sergio Sauceda MD MD rn Bryson, James, RN RN jb4 Lissette Dodge RN RN kd3 Louis Moran MD MD sp4 Corrections: (The following items were deleted from the chart) 20:03 20:03 C-REACTIVE PROTEIN+C.LAB.BRZ ordered. EDMS EDMS 20:03 20:03 SARS-COV-2 Antigen Rapid+I.LAB.BRZ ordered. EDMS EDMS 20:03 20:03 AMMONIA+C.LAB.BRZ ordered. EDMS EDMS 20:03 20:03 ETHANOL+C.LAB.BRZ ordered. EDMS EDMS 20:03 20:03 URINE DRUG SCREEN+UC.LAB.BRZ ordered. EDMS EDMS 01/02 00:48 00:07 [facility] sp4 jb4
--- NOTE | 2024-01-03 00:07 | ER ---
Nurse's Notes [facility] Name: Shannan Montes Age: 53 yrs Sex: Female : 1970 Arrival Date: 01/02/2024 Time: 19:54 Bed 2 Private MD: Diagnosis: Acute Hemorrhagic CVA , generalized weakness, acute choking episode, punctate intracranial hemorrhage Presentation: 01/01 20:14 Chief complaint: EMS states: Pt's called due to sudden onset altered mental jb4 status. Pt has had a stroke in the past, the right sided weakness to both extremities, the right sided droop, and altered speech is normal per her . Pt is currently A\T\Ox1. BGL was 157. Coronavirus screen: At this time, the client does not indicate any symptoms associated with coronavirus-19. Ebola Screen: No symptoms or risks identified at this time. Initial Sepsis Screen: Does the patient meet any 2 criteria? RR > 20 per min. Yes Does the patient have a suspected source of infection? No. Patient's initial sepsis screen is negative. Risk Assessment: Do you want to hurt yourself or someone else? Patient reports no desire to harm self or others. Onset of symptoms was January 02, 2024. Transition of care: patient was not received from another setting of care. 20:14 Method Of Arrival: EMS: [facility] 4 20:14 Acuity: JAYESH 3 jb4 Triage Assessment: 20:17 General: Appears in no apparent distress. uncomfortable, ill, Behavior is calm, jb4 cooperative. Pain: Complains of pain in right leg Pain does not radiate. Pain currently is 6 out of 10 on a pain scale. Neuro: Level of Consciousness is awake, confused, Oriented to person. Cardiovascular: Patient's skin is warm and dry. Respiratory: Airway is patent Respiratory effort is even, labored, Respiratory pattern is symmetrical, tachypnea. GI: No signs and/or symptoms were reported involving the gastrointestinal system. : No signs and/or symptoms were reported regarding the genitourinary system. Derm: Skin is intact. Musculoskeletal: Range of motion: limited in right shoulder and right hip. Historical: - Allergies: 20:17 Sulfa (Sulfonamide Antibiotics); jb4 20:17 Warfarin; jb4 - PMHx: 20:17 Bipolar disorder; bulging discs-back pain with pinched nerves.; Cerebrovascular jb4 accident; PTSD; Seizure; - PSHx: 20:17 foot; wrist; jb4 - Immunization history:: Adult Immunizations. - Infectious Disease History:: Denies. - Family history:: not pertinent. - Social history:: Smoking status: unknown. Screenin:53 [facility] ED Fall Risk Assessment (Adult). Abuse screen: Denies threats or abuse. Denies kd3 injuries from another. Nutritional screening: No deficits noted. Tuberculosis screening: No symptoms or risk factors identified. 20:57 [facility] ED Fall Risk Assessment (Adult) History of falling in the last 3 months, kd3 including since admission Yes- single mechanical fall (1 pt) Confusion or Disorientation Yes (5 pts) Intoxicated or Sedated No (0 pts) Impaired Gait Yes (1 pt) Mobility Assist Device Used Yes (1 pt) Altered Elimination No (0 pt) Score/Fall Risk Level 3 or more points = High Risk Oriented to surroundings, Maintained a safe environment, Educated pt \T\ family on fall prevention, incl call for assistance when getting out of bed, Assessed \T\ reinforced patient's understanding of fall precautions, Provided non-skid footwear, Hourly rounding (assess needs \T\ fall precautionary measures) done, Used ambulatory aids as needed (educated on \T\ assisted with). 21:00 [place] Swallow Protocol Exclusion Criteria: Unable to remain alert for testing: No NPO jb4 for medical/surgical reason by provider order No Tracheostomy tube present No No thin liquids due to preexisting dysphagia/baseline modified diet thickened liquids No Exclusion Criteria Result: Defer \T\ Consult Brief Cognitive Screen What is your name? Normal, Where are you right now? Abnormal What year is it? Abnormal Result: FAIL Notified: Louis Moran MD. Assessment: 19:57 General: Code stroke called by Bedside RN . kd3 20:02 General: Provider at bedside states to cancel code stroke due to symptoms of previous kd3 CVA. Per provider, code stroke canceled. . 20:57 General: is at the bedside. . Neuro: Level of Consciousness is awake, alert, kd3 obeys commands, Oriented to person, place. Neuro: Oriented to situation. Respiratory: Airway is patent Trachea midline Respiratory effort is even, unlabored, Respiratory pattern is regular, symmetrical. 22:05 General: PT returned to the room by CT. . kd3 23:31 Reassessment: Pt remains awake and A\T\Ox1. Respirations are even and unlabored with no jb4 s/s of pain or distress noted. Vital Signs: 20:14 BP 130 / 94; Pulse 75; Resp 28; Temp 98.3(O); Pulse Ox 100% on R/A; Pain 6/10; jb4 20:56 BP 136 / 92; Pulse 72; Resp 19; Pulse Ox 100% on R/A; kd3 22:05 BP 141 / 79; Pulse 81; Resp 16; Pulse Ox 100% ; kd3 23:07 BP 144 / 90; Pulse 76; Resp 18; Pulse Ox 94% on R/A; kd3 23:51 BP 140 / 91; Pulse 77; Resp 16; Pulse Ox 100% on R/A; kd3 20:14 Pain Scale: Adult jb4 [place] Coma Score: 23:41 Eye Response: spontaneous(4). Motor Response: obeys commands(6). Verbal Response: jb4 confused(4). Total: 14. 0830 00:37 Eye Response: spontaneous(4). Motor Response: obeys commands(6). Verbal Response: sp4 oriented(5). Total: 15. NIH Stroke Scale Scores: 01/01 20:17 NIHSS Score: 9 jb4 ED Course: 19:54 Patient arrived in ED. jj6 19:57 Lousi Moran MD is Attending Physician. sp4 20:02 Lissette Dodge, RN is Primary Nurse. kd3 20:09 CT Stroke Brain w/o Contrast In Process Unspecified. EDMS 20:17 Triage completed. jb4 20:19 Stroke CXR 1 View In Process Unspecified. EDMS 20:22 Arm band placed on right wrist. jb4 20:30 Inserted saline lock: 20 gauge in left antecubital area, using aseptic technique. Blood kd3 collected. Flushed with 10 mL NS. 20:30 Initial lab(s) drawn, by fl, sent to lab. Urine collected: straight cath specimen, kd3 clear, Amount Returned: 50mL. 20:52 Urine Drug Screen Sent. kd3 20:52 Alcohol Level Sent. kd3 20:52 AMMONIA Sent. kd3 20:52 SARS RAPID Sent. kd3 20:52 CRP Sent. kd3 20:52 TSH Sent. kd3 20:52 T4 Free Sent. kd3 20:52 LFT's Sent. kd3 20:52 Basic Metabolic Panel Sent. kd3 20:52 High Sensitivity Troponin Sent. kd3 20:58 Patient has correct armband on for positive identification. Provided Education on: kd3 straight cath for urine . 21:11 EKG done, by ED staff. kd3 22:08 CT Neck Angio In Process Unspecified. EDMS 22:08 Head angio In Process Unspecified. EDMS 22:53 Initiated transfer with Maria A at [facility]. rv1 23:[address] Doc [address] Doc with Dr. Bryan. rv1 23:[address] Bryan to [place] [id number] Bed 7520. rv1 23:42 Bridget with [place] gave 45 min ETA. rv1 Administered Medications: 20:50 Drug: NS 0.9% IV 1000 ml IV at 1 bolus Per protocol; 1000 mL bolus Route: IV; Rate: 1 jb4 bolus; Site: left antecubital; Medication: 20:58 VIS not applicable for this client. kd3 Outcome: 01/02 00:07 ER care complete, transfer ordered by . sp4 00:48 Patient left the ED. jb4 NIH Stroke Scale - NIH Stroke Score Date: 01/02/2024 Time: 20:17 Total Score = 9 10. Dysarthria (speech clarity - read or repeat words) - 0(Normal) 11. Extinction and Inattention (visual/tactile/auditory/spatial/personal) - 0(No abnormality) 1a. Level of Consciousness (LOC) - 0(Alert) 1b. Level of Consciousness (LOC) (Month \T\ Age) - 1(One) 1c. LOC Commands (Open \T\ Closes Eyes/Manager Career) - 0(Both) 2. Best Gaze (Lateral Gaze Paresis) - 0(Normal) 3. Visual Field Loss - 0(No visual loss) 4. Facial Palsy - 2(Partial paralysis) 5a. Left Arm: Motor (10-second hold) - 0(No drift) 5b. Right Arm: Motor (10-second hold) - 3(No effort against gravity) 6a. Left Leg: Motor (5-second hold - always test supine) - 0(No drift) 6b. Right Leg: Motor (5-second hold - always test supine) - 3(No effort against gravity) 7. Limb Ataxia (finger/nose \T\ heel/sharma - test with eyes open) - 0(Absent) 8. Sensory Loss (pinprick arms/legs/face) - 0(Normal) 9. Best Language: Aphasia (description/naming/reading) - 0(No aphasia) Initials: jb4 Signatures: Dispatcher [employer] Eric Martinez RN RN jb4 Sendy [email or web address] Lissette Dodge RN RN kd3 Abigail Mendez rv1 Louis Moran MD MD sp4
[2024-01-03 01:39] VITALS: TEMP 98.3
[2024-01-03 01:48] VITALS: BP 140/91; O2SAT 100
--- NOTE | 2024-01-03 14:37 | EKG ---
Test Date: 2024-01-02 Test Time: 21:07:25 Electronic Commerce Specialist: JASPREET MEASUREMENT RESULTS: Intervals: Rate: 76 MO: QRSD: 162 QT: 458 QTc: 515 [place]: P: MO: QRS: 40 T: -45 INTERPRETIVE STATEMENTS: Normal sinus rhythm Nonspecific intraventricular block Abnormal ECG Compared to ECG 02/20/2021 03:12:47 Fusion complex(es) now present Sinus rhythm no longer present Myocardial infarct finding no longer present Electronically Signed On 01-03-24 14:37:26 CDT by Alvarez Montoya
== END 2024-01-03 00:48 | disposition short-term general hospital (02) ==
LOC: ER 19:54
DX: I62.9 Nontraumatic intracranial hemorrhage, unspecified (principal); R29.709 NIHSS score 9; R09.89 Other specified symptoms and signs involving the circulatory and respiratory systems; Z86.73 Personal history of transient ischemic attack (TIA), and cerebral infarction without residual deficits; Z11.52 Encounter for screening for COVID-19
CPT/HCPCS: 93005; 85025; 80048; 36415; 82140; 85610; 80076; 85730; 84443; 84484; 84439; 80307; 86140; 70496; 70498; 70450; 71045; 99285; 82077; 87811; Q9967; J7030